=== PATIENT | female | born 1965 | race Caucasian/White ===

== ENCOUNTER 2020-02-10 07:35 | Outpatient (REF) | payer OTHER, SELFPAY ==
[2020-02-10 13:53] LABS: Hematocrit 41.1 % (37-47); Hemoglobin 13.4 g/dl (12.0-16.0); Mean Corpuscular HGB Conc 32.6 g/dl (31.0-35.0); Mean Corpuscular Hemoglobin 30.5 pg (27.0-33.0); Mean Corpuscular Volume 93.4 fL (80-98); Mean Platelet Volume 12.5 fL (9.4-12.3); Platelet Count 225 X10*3/uL (160-400); Red Cell Distribution Width 12.5 % (11.0-16.0); White Blood Count 6.9 X10*3/uL (4.8-10.8)
[2020-02-10 14:00] LABS: Glucose Urine UA NEG (NEG); Leukocyte Esterase Urine NEG (NEG); Nitrite Urine NEG (NEG); PH 6.5 (5.0-8.0); Urine Blood NEG (NEG); Urine Ketones NEG (NEG); Urine Protein NEG (NEG-TRACE)
[2020-02-10 14:02] LABS: Appearance Urine HAZY; Color Urine YELLOW
[2020-02-10 14:21] LABS: Creatinine Urine 109.51 mg/dL; Microalbum/Creatinine Ratio Ur 5.4 ug/mg cr
[2020-02-10 14:24] LABS: Estimated Average Glucose 103 mg/dL; Hemoglobin A1c % 5.2 %
[2020-02-10 14:28] LABS: Alanine Aminotransferase 22 U/L (0-31); Albumin Level 4.8 g/dL (3.5-5.0); Alkaline Phosphatase 67 U/L (39-117); Anion Gap 13 (12-20); Aspartate Amino Transferase 22 U/L (5-31); Bilirubin Total 0.6 mg/dL (0.0-1.0); Blood Urea Nitrogen 13 mg/dL (9-16); Calcium 9.4 mg/dL (8.4-10.2); Carbon Dioxide 26 mmol/L (22-29); Chloride 104 mmol/L (96-108); Cholesterol 177 mg/dL; Estimated Glomerular Filt Rate > 60; Glucose Fasting 86 mg/dL (60-99); HDL Cholesterol 62 mg/dL; LDL Cholesterol Calculated 100 mg/dl; Potassium 4.8 mmol/l (3.3-5.1); Sodium 138 mmol/L (135-145); Total Protein 7.1 g/dL (6.5-8.0); Triglycerides 79 mg/dL
[2020-02-10 14:42] LABS: Thyroid Stimulating Hormone 0.71 mIU/mL (0.32-4.0); Vitamin D 25-OH Total 21.9 ng/mL (>30)
== END 2020-02-10 07:36 | disposition home or self-care (01) ==
LOC: HO.10HDL 07:35
PROVIDERS: PCP Internal Medicine; Visit Provider Internal Medicine
DX: E03.9 Hypothyroidism, unspecified (principal); E55.9 Vitamin D deficiency, unspecified; E78.00 Pure hypercholesterolemia, unspecified
CPT/HCPCS: 36415; 80053; 80061; 81003; 82043; 82306; 83036; 84443; 85027

== ENCOUNTER 2020-02-28 16:33 | Outpatient (REF) | payer OTHER, SELFPAY | END 2020-02-28 16:34 | disposition home or self-care (01) | LOC: HO.LNP 16:33 | PROVIDERS: Visit Provider Internal Medicine | DX: R73.01 Impaired fasting glucose; E03.9 Hypothyroidism, unspecified; E78.5 Hyperlipidemia, unspecified | CPT/HCPCS: 88142 ==

== ENCOUNTER 2020-02-29 12:38 | Outpatient (REF) | payer OTHER, SELFPAY | END 2020-02-29 12:39 | disposition home or self-care (01) | LOC: HO.LAB 12:38 | PROVIDERS: Visit Provider Internal Medicine | DX: Z13.89 Encounter for screening for other disorder (principal) | CPT/HCPCS: 88142 ==

== ENCOUNTER 2020-03-19 06:58 | Outpatient (REF) | payer OTHER, SELFPAY ==
[2020-03-19 08:06] LABS: COVID-19 Test Negative (Negative)
== END 2020-03-19 06:59 | disposition home or self-care (01) ==
LOC: HO.EMPCOV 06:58
PROVIDERS: PCP Internal Medicine; Visit Provider Internal Medicine
DX: Z20.828 Contact with and (suspected) exposure to other viral communicable diseases (principal)
CPT/HCPCS: 87635; C9803

== ENCOUNTER 2020-12-18 10:19 | Outpatient (REF) | payer OTHER, SELFPAY ==
[2020-12-18 13:55] LABS: Alanine Aminotransferase 14 U/L (0-31); Albumin Level 4.5 g/dL (3.5-5.0); Alkaline Phosphatase 66 U/L (39-117); Anion Gap 11 (12-20); Aspartate Amino Transferase 18 U/L (5-31); Bilirubin Total 0.5 mg/dL (0.0-1.0); Blood Urea Nitrogen 14 mg/dL (9-16); Calcium 9.5 mg/dL (8.4-10.2); Carbon Dioxide 27 mmol/L (22-29); Chloride 107 mmol/L (96-108); Cholesterol 181 mg/dL; Estimated Glomerular Filt Rate > 60; Glucose Fasting 100 mg/dL (60-99); HDL Cholesterol 63 mg/dL; LDL Cholesterol Calculated 104 mg/dl; Sodium 140 mmol/L (135-145); Total Protein 6.8 g/dL (6.5-8.0); Triglycerides 73 mg/dL
[2020-12-18 14:01] LABS: TSH reflex Free T4 1.65 uIU/mL (0.32-4.0); Vitamin D 25-OH Total 22.6 ng/mL (>30)
== END 2020-12-18 10:20 | disposition home or self-care (01) ==
LOC: HO.10HDL 10:19
PROVIDERS: Visit Provider Internal Medicine
DX: R73.01 Impaired fasting glucose (principal); E03.9 Hypothyroidism, unspecified; E78.5 Hyperlipidemia, unspecified; E55.9 Vitamin D deficiency, unspecified
CPT/HCPCS: 36415; 80053; 80061; 82306; 84443

== ENCOUNTER 2021-06-14 12:26 | Outpatient (REF) | payer OTHER, SELFPAY ==
--- NOTE | ~2021-06-14 | XR_ITS ---
EXAMINATION: XR PELVIS XR HIP, LEFT CLINICAL INFORMATION: Pain in left hip. COMPARISON: None TECHNIQUE: AP pelvis 1 view. Left hip 2 views. FINDINGS: AP Pelvis: There is normal symmetry of both hip joints and SI joints. No visible acute fracture, dislocation or subluxation seen. The soft tissues are normal. Left Hip: 2 views of the left hip reveals no visible acute fracture or dislocation. No bony erosive changes. The soft tissues are normal. XR/XR hip LT min 2V IMPRESSION: Unremarkable left hip exam. Unremarkable AP pelvis exam.
--- NOTE | ~2021-06-14 | XR_ITS ---
EXAMINATION: XR PELVIS XR HIP, LEFT CLINICAL INFORMATION: Pain in left hip. COMPARISON: None TECHNIQUE: AP pelvis 1 view. Left hip 2 views. FINDINGS: AP Pelvis: There is normal symmetry of both hip joints and SI joints. No visible acute fracture, dislocation or subluxation seen. The soft tissues are normal. Left Hip: 2 views of the left hip reveals no visible acute fracture or dislocation. No bony erosive changes. The soft tissues are normal. XR/XR pelvis 1-2V IMPRESSION: Unremarkable left hip exam. Unremarkable AP pelvis exam.
== END 2021-06-14 12:27 | disposition home or self-care (01) ==
LOC: HO.HOSX 12:26
PROVIDERS: Visit Provider Physician Assistant
DX: M24.552 Contracture, left hip (principal)
CPT/HCPCS: 72170; 73502

== ENCOUNTER 2021-08-05 13:00 | Outpatient (RCR) | payer OTHER, SELFPAY ==
--- NOTE | 2021-07-08 14:01 | MHC.PT.EP ---
[facility] [place] Office [place] Office [place] Office [address] [phone] F: [phone] F: [phone] F: [phone] F: [phone] Physical Therapy Plan of Care Date of Evaluation: Date of Surgery: Diagnosis: L hip contracture. Assessment: Patient is a 56 year old R handed female who presents with s/s consistent with pain hip flex contracture. She works with daily job demands including standing, walking, sitting. Patient past medical history includes plantar fasciitis. Current impairments include pain, posture, ROM, strength, activity tolerance and functional mobility. Functional limitations include decreased ability to stand, getting into bath, into bed, sleep, and get into car in addition to negotiating stairs. Patient is motivated with good rehab potential. Skilled PT will address impairments and functional limitations in order to achieve goals. Frequency and Duration: The patient will be seen 2x/week for 5 weeks Short Term Goals: I with HEP -2 weeks Symmetrical innom - 3 weeks Hip abd/ext strength 4+/5 grossly Jitterbug Operator Goals: Able to walk, sleep, negotiate stairs, pain free - 5 weeks LEFS 66/80 - 5 weeks Treatment Plan: Modalities to reduce pain, spasms and effusion. Manual therapy to restore motion and function. Therapeutic exercise to improve strength and flexibility. Neuromuscular re-education for posture and balance. Therapeutic activities to return to functional activities of daily living. Electronically signed by: Tommy Jaime, PT Please sign and return to therapist. Thank you for your referral.
--- NOTE | 2021-08-09 14:37 | MHC.PT.OD ---
[facility] [place] Office [place] Office [place] Office [address] Jonh Okeefe [address] [phone] F: [phone] F: [phone] F: [phone] F: [phone] Physical Therapy Daily Note Diagnosis: L hip contracture. Date of Surgery: Date of Evaluation: 07/08/21 Date of Treatment: 08/05/21 Treatments to Date: 6 Cancellations to Date: No Shows to Date: Authorized Visits: Insurance End Date: Precautions/ Contraindications:none Subjective: It still hurts a lot Pain Score and Location: 4 Objective Flowsheet: Tests & Measures ER to 22 Exercises Stepper 12 minutes L3.5 gastroc stretching 4x30 PB HS curls 20x bridging 20x hip abd with black TB 15x10 hip add with ball 15x10 supine mod karl hip flex stretching 3x30 seconds BKFO 10x each (NV) SKTC stretching (NV) standing hip abd and ext 2 min each with RTB hep and pt edu MET for R ant innom Modalities Assessment: 08/05/21: Pt progress has been slow overall. She still has a painful arc and is still limited daily in terms of her function. She has been having a difficult time finding sustained progress with any of the interventions we have attempted with her thus far. At this time, it may be in her best interest to acquire further imaging in order to differentially diagnose and assure optimal management. 07/29/21: pt with med heel whip b/l, pigeon toed gait with L sided trendelenberg. we added gastroc stretching to HEP. 07/25/21: pt still with significant pain in L hip. admittedly has not done HEP. educated thoroughly on use of HEP and asymmetrical activity modifications. 07/15/21: pt progression seemingly limited by significant PF pain. She notes needing new orthotics and she will pursue an injection. educated her how this pain may slow progress. 07/11/21: educated thoroughly on symmetrical postures and habits. progressed with hip strength and issued updated HEP. Patient is a 56 year old R handed female who presents with s/s consistent with pain hip flex contracture. She works with daily job demands including standing, walking, sitting. Patient past medical history includes plantar fasciitis. Current impairments include pain, posture, ROM, strength, activity tolerance and functional mobility. Functional limitations include decreased ability to stand, getting into bath, into bed, sleep, and get into car in addition to negotiating stairs. Patient is motivated with good rehab potential. Skilled PT will address impairments and functional limitations in order to achieve goals. PT Plan: restore symmetry in pelvis and hips. Short Term Goals: I with HEP -2 weeks Symmetrical innom - 3 weeks Hip abd/ext strength 4+/5 grossly Long Term Care Phlebotomist Goals: Able to walk, sleep, negotiate stairs, pain free - 5 weeks LEFS 66/80 - 5 weeks Electronically signed by: Tommy Jaime PT
--- NOTE | 2022-01-16 09:26 | MHC.PT.DC ---
[facility] [place] [facility] [place] Office [place] Office [address] Jonh Okeefe [address] [phone] F: [phone] F: [phone] F: [phone] F: [phone] Physical Therapy Discharge Report Diagnosis: L hip contracture. Date of Surgery: Date of Evaluation: 07/08/21 Date of Discharge: 08/19/21 Treatments to Date: 6 Cancellations to Date: No Shows to Date: Discharge Status: Independent with HEP Recommend MD Follow-up Discharge Summary: 08/05/21: Pt progress has been slow overall. She still has a painful arc and is still limited daily in terms of her function. She has been having a difficult time finding sustained progress with any of the interventions we have attempted with her thus far. At this time, it may be in her best interest to acquire further imaging in order to differentially diagnose and assure optimal management. 07/29/21: pt with med heel whip b/l, pigeon toed gait with L sided trendelenberg. we added gastroc stretching to HEP. 07/25/21: pt still with significant pain in L hip. admittedly has not done HEP. educated thoroughly on use of HEP and asymmetrical activity modifications. 07/15/21: pt progression seemingly limited by significant PF pain. She notes needing new orthotics and she will pursue an injection. educated her how this pain may slow progress. 07/11/21: educated thoroughly on symmetrical postures and habits. progressed with hip strength and issued updated HEP. Patient is a 56 year old R handed female who presents with s/s consistent with pain hip flex contracture. She works with daily job demands including standing, walking, sitting. Patient past medical history includes plantar fasciitis. Current impairments include pain, posture, ROM, strength, activity tolerance and functional mobility. Functional limitations include decreased ability to stand, getting into bath, into bed, sleep, and get into car in addition to negotiating stairs. Patient is motivated with good rehab potential. Skilled PT will address impairments and functional limitations in order to achieve goals. Electronically signed by: Tommy Jaime, PT Please sign and return to therapist. Thank you for your referral.
== END 2022-01-16 09:27 | disposition home or self-care (01) ==
LOC: HO.PTCHIC 13:00
PROVIDERS: Visit Provider Physician Assistant
DX: M24.552 Contracture, left hip (principal)
CPT/HCPCS: 97110; 97140; 97161

== ENCOUNTER 2021-08-21 13:20 | Outpatient (REF) | payer OTHER, SELFPAY ==
--- NOTE | ~2021-08-21 | FL_ITS ---
EXAMINATION: XR ARTHROGRAM HIP, LEFT CLINICAL INFORMATION: Left hip pain and swelling. COMPARISON: None TECHNIQUE: Following explanation of fluoroscopy-guided left hip arthrogram procedure, benefits and risks, a written consent was obtained. Patient was placed supine on fluoroscopy table and a marker placed on the skin at the entry site for left hip arthrogram. The area marked was cleaned and draped in usual sterile manner. 1% lidocaine was injected at puncture site. A 22-gauge spinal needle was then advanced from the skin into the left hip joint along the lateral border of femoral neck and 1-2 mL of nonionic contrast was injected. Subsequently 0.1 mL of gadolinium diluted with 1% lidocaine and saline as a 10 mL volume was injected and needle withdrawn. Complete hemostasis achieved at puncture site. Sterile Band-Aid applied postprocedure. Patient tolerated procedure extremely well. FINDINGS: On images obtained of the left hip joint, the joint space is reduced. No bony erosive changes, fracture or dislocation. The soft tissues are normal. There is contrast opacifying the left hip joint space. FLUOROSCOPY TIME: 0.5 minutes DOSE AREA PRODUCT: 4.183 uGy-m2 (microgray-meter squared) FL/FL arthrogram hip LT IMPRESSION: Successful fluoroscopy-guided left hip arthrogram done for MRI imaging to be performed subsequently.
--- NOTE | ~2021-08-21 | MR_ITS ---
EXAMINATION: MR HIP WITH CONTRAST, LEFT CLINICAL INFORMATION: Left hip pain and swelling COMPARISON: None TECHNIQUE: MRI of the left hip was performed after the intra-articular administration of a dilute gadolinium-containing solution on a high-field scanner. FINDINGS: BONE/JOINTS: Anatomic alignment of the left hip joint. No evidence of fracture, avascular necrosis or stress reaction. No significant cartilage loss is seen. Mild osseous prominence at the anterior femoral head and neck junction of the femur. Alpha angle measures 54 degrees. Acetabular depth is normal. LABRUM: No definite labral tear is identified. MUSCLES/TENDONS: Mild to moderate distal gluteus minimus tendinosis/partial tear. Minimal distal gluteus medius tendinosis. Mild common hamstring tendinosis. Iliopsoas tendon is intact. No muscle tear or strain is seen. MISCELLANEOUS: Subcentimeter left groin lymph nodes.. MR/MR hip LT w con IMPRESSION: 1. No acute osseous abnormality. 2. Mild osseous prominence at the anterior femoral head and neck junction, may predispose to femoral acetabular impingement. 3. No definite labral tear seen. 4. Mild to moderate distal gluteus minimus tendinosis/partial tear. Minimal distal gluteus medius tendinosis. Mild left common hamstring tendinosis.
== END 2021-08-21 13:21 | disposition home or self-care (01) ==
LOC: HO.XRAY 13:20
PROVIDERS: PCP Internal Medicine; Visit Provider Physician Assistant
DX: M24.552 Contracture, left hip (principal)
CPT/HCPCS: 27093; 73525; 73722; A9585

== ENCOUNTER 2021-09-12 12:56 | Outpatient (REF) | payer OTHER, SELFPAY ==
--- NOTE | ~2021-09-12 | FL_ITS ---
EXAMINATION: XR ARTHROGRAM HIP, LEFT CLINICAL INFORMATION: Left hip pain. COMPARISON: 08/21/2021 TECHNIQUE: Fluoroscopic-guided intra-articular steroid injection of the left hip. FINDINGS: Informed consent was obtained from the patient prior to the procedure. During this process, the procedure and potential alternatives were explained, along with the intended outcome and benefits. The risks of the procedure, as well as the risk of not doing the procedure, were discussed. The patient was given the opportunity to ask questions regarding the procedure and appeared competent to make medical decisions. A signed consent form which documents this discussion was placed in the medical record. Using sterile technique and fluoroscopic guidance a 22-gauge spinal needle was directed down onto the left femoral neck. A small amount of contrast was injected demonstrating intra-articular positioning of the needle. A mixture of 4 mL of bupivacaine and 80 mg of Depo-Medrol was then instilled into the left hip joint space. Postprocedure, the patient says that her pain is improved. FLUOROSCOPY TIME: 0.7 minutes. DOSE AREA PRODUCT: 2.993 Gy-cm2 (greene-centimeter squared) FL/FL arthrogram hip LT IMPRESSION: Left hip intra-articular steroid injection as described.
== END 2021-09-12 12:57 | disposition home or self-care (01) ==
LOC: HO.XRAY 12:56
PROVIDERS: PCP Internal Medicine; Visit Provider Physician Assistant
DX: M25.852 Other specified joint disorders, left hip (principal)
CPT/HCPCS: 27093; 73525

== ENCOUNTER 2021-11-20 08:16 | Outpatient (REF) | payer OTHER, SELFPAY ==
[2021-11-20 10:22] LABS: MANUAL DIFF FLAG NO
[2021-11-20 10:25] LABS: Appearance Urine HAZY; Color Urine YELLOW; Glucose Urine UA NEG (NEG); Leukocyte Esterase Urine NEG (NEG); Nitrite Urine NEG (NEG); Urine Blood NEG (NEG); Urine Ketones NEG (NEG); Urine Protein NEG (NEG-TRACE)
[2021-11-20 10:31] LABS: Basophils Percent Auto 0.6 % (0-2); Eosinophils Absolute Auto 0.2 X10*3/uL (0.0-0.4); Eosinophils Percent Auto 3.6 % (0-4); Hematocrit 39.7 % (37.0-47.0); Hemoglobin 12.8 g/dl (12.0-16.0); Imm Gran Abs Auto 0.01 X10*3/uL (0.00-0.03); Imm Gran Pct Auto 0.2 % (0.0-0.4); Lymphocytes Absolute Auto 1.4 X10*3/uL (1.2-4.9); Lymphocytes Percent Auto 22.6 % (20-40); Mean Corpuscular HGB Conc 32.2 g/dl (31.0-35.0); Mean Corpuscular Hemoglobin 29.8 pg (27.0-33.0); Mean Corpuscular Volume 92.3 fL (80.0-98.0); Monocytes Absolute Auto 0.5 X10*3/uL (0.1-1.2); Monocytes Percent Auto 8.2 % (2-11); Neutrophils Absolute Auto 4.1 x10*3/uL (2.0-8.3); Neutrophils Percent Auto 64.8 % (45-73); Platelet Count 196 X10*3/uL (160-400); Red Cell Distribution Width 13.2 % (11.0-16.0); White Blood Count 6.4 X10*3/uL (4.8-10.8)
[2021-11-20 10:51] LABS: RBC Urine 0 /HPF (0); WBC Urine 0 /HPF (0-4)
[2021-11-20 10:52] LABS: Bacteria Urine 2+ /LPF; Mucus Urine 2+ /LPF; Squamous Epithelial Cell Urine 2+ /LPF
[2021-11-20 10:59] LABS: Alanine Aminotransferase 17 U/L (0-31); Albumin Level 4.4 g/dL (3.5-5.0); Alkaline Phosphatase 65 U/L (39-117); Anion Gap 12 (12-20); Aspartate Amino Transferase 19 U/L (5-31); Bilirubin Total 0.5 mg/dL (0.0-1.0); Blood Urea Nitrogen 13 mg/dL (9-16); Calcium 8.9 mg/dL (8.4-10.2); Carbon Dioxide 25 mmol/L (22-29); Chloride 107 mmol/L (96-108); Cholesterol 181 mg/dL; Estimated Glomerular Filt Rate > 60; Glucose Fasting 100 mg/dL (60-99); HDL Cholesterol 64 mg/dL; LDL Cholesterol Calculated 106 mg/dl; Potassium 4.4 mmol/L (3.3-5.1); Sodium 140 mmol/L (135-145); Total Protein 6.6 g/dL (6.5-8.0); Triglycerides 57 mg/dL
[2021-11-20 11:11] LABS: TSH reflex Free T4 1.39 uIU/mL (0.32-4.0)
== END 2021-11-20 08:17 | disposition home or self-care (01) ==
LOC: HO.10HDL 08:16
PROVIDERS: Visit Provider Internal Medicine
DX: E55.9 Vitamin D deficiency, unspecified (principal); E78.5 Hyperlipidemia, unspecified; M24.552 Contracture, left hip; M25.852 Other specified joint disorders, left hip; E03.9 Hypothyroidism, unspecified
CPT/HCPCS: 36415; 80053; 80061; 81001; 84443; 85025

== ENCOUNTER 2021-12-20 08:19 | Outpatient (REF) | payer OTHER, SELFPAY ==
--- NOTE | ~2021-12-20 | MM_ITS ---
EXAMINATION: MM SCREENING DIGITAL BREAST TOMOSYNTHESIS, BILATERAL CLINICAL INFORMATION: Screening. Asymptomatic. The lifetime risk of breast cancer based on the Tyrer-Cuzick Model is 7%. COMPARISON: Mammography: 07/06/2019, 03/11/2017, 10/25/2015 TECHNIQUE: Digital breast tomosynthesis is performed in both the craniocaudal and mediolateral oblique views along with computer-aided detection (CAD). Synthesized 2D images are generated from the tomosynthesis. FINDINGS: The breasts are almost entirely fatty (ACR BI-RADS breast composition Category a). There are no significant masses, abnormal calcifications, or other abnormalities. Parenchymal pattern is similar to prior studies. No developing density. No significant changes. MM/MM tomosynthesis screening BI IMPRESSION: No mammographic evidence of malignancy. ASSESSMENT: BI-RADS 1: Negative RECOMMENDATION: Routine annual mammography screening. This patient's information was entered into a reminder system with a target due date for their next mammogram.
--- NOTE | ~2021-12-20 | MM_ITS ---
EXAMINATION: BONE DENSITOMETRY CLINICAL INDICATION: Asymptomatic menopausal state. COMPARISON: None (current study represents initial baseline exam). TECHNIQUE: Using a Chart[employer]right DXA System (software version: 13.1) manufactured by [employer], dual-energy x-ray absorptiometry was performed of the lumbar spine and left hip. The images are of good technical quality. Summary results are attached. FINDINGS: AP SPINE L1-L4: BMD 1.238 g/cm2, Z-score 0.3, T-score 0.5, normal. LEFT FEMUR, NECK: BMD 0.914 g/cm2, Z-score -0.5, T-score -0.9, normal. LEFT FEMUR, TOTAL: BMD 1.059 g/cm2, Z-score 0.4, T-score 0.4, normal. IDENTIFIED RISK FACTORS: Menopause. HISTORY OF FRACTURE: None listed. MEDICATIONS: Vitamin D. MM/XR DEXA axial skeleton IMPRESSION: 1. DIAGNOSIS: Normal bone density based on the lowest T-score value of -0.9 in the femoral neck applying World Health Organization criteria. 2. 10-YEAR FRACTURE RISK PREDICTION, FRAX: According to the guidelines, FRAX calculation should only be performed on patients in the osteopenia bone density category. Therefore, FRAX was not performed on this patient. 3. Treatment Recommendations: NOF guidelines recommend consideration for treatment in postmenopausal women and men age 50 and older presenting with the following: -A hip or vertebral (clinical or morphometric) fracture. -T-score less than or equal to -2.5 at the femoral neck or spine after appropriate evaluation to exclude secondary causes. -Low bone mass at the hip or spine and a 10-year fracture probability by FRAX of greater than or equal to 3% for hip fracture or greater than or equal to 20% for major osteoporotic fracture based on the [place] adapted WHO algorithm. 4. Other Recommendations: All treatment decisions require clinical judgment and consideration of individual patient factors, including patient preferences, comorbidities, previous drug use, risk factors not captured in the FRAX model (e.g. frailty, falls, vitamin D deficiency, increased bone turnover, interval significant decline in bone density) and possible under or overestimation of fracture risk by FRAX. FUTURE SCAN RECOMMENDATION: People with diagnosed cases of osteoporosis or at high risk for fracture should have regular bone mineral density tests. For patients eligible for Medicare, routine testing is allowed once every 2 years. The testing frequency can be increased to one year for patients who have rapidly progressing disease, those who are receiving or discontinuing medical therapy to restore bone mass, or have additional risk factors.
== END 2021-12-20 08:20 | disposition home or self-care (01) ==
LOC: HO.MAMMO 08:19
PROVIDERS: PCP Internal Medicine; Visit Provider Internal Medicine
DX: Z12.31 Encounter for screening mammogram for malignant neoplasm of breast (principal); Z13.820 Encounter for screening for osteoporosis; Z78.0 Asymptomatic menopausal state; E55.9 Vitamin D deficiency, unspecified
CPT/HCPCS: 77063; 77067; 77080

== ENCOUNTER 2022-02-20 11:58 | Outpatient (REF) | payer OTHER, SELFPAY ==
--- NOTE | ~2022-02-20 | XR_ITS ---
EXAMINATION: XR CHEST CLINICAL INFORMATION: Nasal congestion COMPARISON: Previous chest x-ray August 2016 TECHNIQUE: Frontal view of the chest was obtained. FINDINGS: No significant abnormality is noted involving the heart, lungs, mediastinum, bony thorax or soft tissues. XR/XR chest 1V IMPRESSION: Unremarkable examination.
--- NOTE | ~2022-02-20 | XR_ITS ---
EXAMINATION: XR SINUSES CLINICAL INFORMATION: Nasal congestion. COMPARISON: None TECHNIQUE: Tillman, Arenas, lateral, and SMV views of the paranasal sinuses are submitted. FINDINGS: Paranasal sinuses appear clear without air-fluid levels. There is a hypoplastic right frontal sinus. No fractures are identified. The nasal septum appears midline. No radiodense foreign bodies. XR/XR sinus min 3V IMPRESSION: Unremarkable examination.
[2022-02-20 13:50] LABS: MANUAL DIFF FLAG NO
[2022-02-20 14:03] LABS: Basophils Percent Auto 0.3 % (0-2); Eosinophils Absolute Auto 0.2 X10*3/uL (0.0-0.4); Eosinophils Percent Auto 3.8 % (0-4); Hematocrit 41.4 % (37.0-47.0); Hemoglobin 13.8 g/dl (12.0-16.0); Imm Gran Abs Auto 0.02 X10*3/uL (0.00-0.03); Imm Gran Pct Auto 0.3 % (0.0-0.4); Lymphocytes Absolute Auto 1.6 X10*3/uL (1.2-4.9); Lymphocytes Percent Auto 25.4 % (20-40); Mean Corpuscular HGB Conc 33.3 g/dl (31.0-35.0); Mean Corpuscular Hemoglobin 30.2 pg (27.0-33.0); Mean Corpuscular Volume 90.6 fL (80.0-98.0); Mean Platelet Volume 12.3 fL (9.4-12.3); Monocytes Absolute Auto 0.4 X10*3/uL (0.1-1.2); Monocytes Percent Auto 6.1 % (2-11); Neutrophils Percent Auto 64.1 % (45-73); Platelet Count 244 X10*3/uL (160-400); Red Blood Count 4.57 X10*6/uL (4.20-5.50); Red Cell Distribution Width 12.8 % (11.0-16.0); White Blood Count 6.3 X10*3/uL (4.8-10.8)
[2022-02-20 14:14] LABS: C Reactive Protein 0.12 mg/dL (< or = 0.50)
[2022-02-22 14:33] LABS: IgA 86 mg/dL (47-310); IgG 718 mg/dL (600-1640); IgM 36 mg/dL (50-300)
== END 2022-02-20 11:59 | disposition home or self-care (01) ==
LOC: HO.HMGCX 11:58
PROVIDERS: PCP Internal Medicine; Visit Provider Internal Medicine
DX: R09.81 Nasal congestion (principal); R09.82 Postnasal drip
CPT/HCPCS: 36415; 70220; 71045; 82784; 85025; 86140

== ENCOUNTER 2022-04-08 09:26 | Outpatient (REF) | payer OTHER, SELFPAY ==
--- NOTE | ~2022-04-08 | XR_ITS ---
EXAMINATION: XR SHOULDER, LEFT CLINICAL INFORMATION: Left shoulder pain. COMPARISON: None TECHNIQUE: Three views of the left shoulder. FINDINGS: A curvilinear lucency is seen laterally in the humeral head/greater tuberosity. Minimal left glenohumeral and acromioclavicular degenerative joint changes are seen. The visualized left ribs are intact with the soft tissues are unremarkable. XR/XR shoulder LT min 2V IMPRESSION: 1. Possible acute, nondisplaced lateral femoral head/greater tuberosity fracture. Correlate with physical exam and trauma history. 2. Minimal degenerative changes.
== END 2022-04-08 09:27 | disposition home or self-care (01) ==
LOC: HO.HMGCX 09:26
PROVIDERS: PCP Internal Medicine; Visit Provider Physician Assistant
DX: M25.512 Pain in left shoulder (principal); W00.9XXD Unspecified fall due to ice and snow, subsequent encounter
CPT/HCPCS: 73030

== ENCOUNTER 2022-05-09 09:19 | Outpatient (REF) | payer OTHER, SELFPAY ==
--- NOTE | ~2022-05-09 | XR_ITS ---
EXAMINATION: XR SHOULDER, LEFT CLINICAL INFORMATION: Pain in the left shoulder. COMPARISON: 04/08/2022. TECHNIQUE: Two views of the left shoulder. FINDINGS: Comminuted greater tuberosity fracture with increased depression and displacement compared to 04/08/2022. AC joint is maintained. The humeral head remains well-seated in the glenoid. No left-sided clavicular fracture. The visualized left-sided ribs and left lung are within normal limits. No abnormal soft tissue calcifications. XR/XR shoulder LT min 2V IMPRESSION: Comminuted greater tuberosity fracture with increased depression and displacement compared to 04/08/2022.
== END 2022-05-09 09:20 | disposition home or self-care (01) ==
LOC: HO.HOSX 09:19
PROVIDERS: Visit Provider Physician Assistant
DX: S42.252D Displaced fracture of greater tuberosity of left humerus, subsequent encounter for fracture with routine healing (principal); W19.XXXD Unspecified fall, subsequent encounter
CPT/HCPCS: 73030

== ENCOUNTER 2022-06-12 15:08 | Outpatient (REF) | payer OTHER, SELFPAY ==
--- NOTE | ~2022-06-12 | XR_ITS ---
EXAMINATION: XR SHOULDER, LEFT CLINICAL INFORMATION: Pain. COMPARISON: Radiographs dated 05/09/2022. TECHNIQUE: AP external rotation, Grashey, scapular Y, and axillary views of the left shoulder. FINDINGS: Bony alignment and mineralization are normal. A healing, comminuted, mildly displaced fracture is redemonstrated of the greater tuberosity of the proximal left humerus. Alignment is relatively stable from 05/09/2022. A faint fracture line is redemonstrated, with some osseous bridging. The glenohumeral joint is intact. The acromioclavicular and coracoclavicular intervals are normal. No soft tissue swelling, calcification or foreign body is seen. There is no left pneumothorax. XR/XR shoulder LT min 2V IMPRESSION: A healing, comminuted fracture is seen of the greater tuberosity of the proximal left humerus, in stable alignment.
== END 2022-06-12 15:09 | disposition home or self-care (01) ==
LOC: HO.HOSX 15:08
PROVIDERS: Visit Provider Physician Assistant
DX: S42.252D Displaced fracture of greater tuberosity of left humerus, subsequent encounter for fracture with routine healing (principal); W19.XXXD Unspecified fall, subsequent encounter
CPT/HCPCS: 73030

== ENCOUNTER 2022-06-26 09:31 | Outpatient (REF) | payer OTHER, SELFPAY ==
--- NOTE | ~2022-06-26 | MR_ITS ---
EXAMINATION: MR SHOULDER WITHOUT CONTRAST, LEFT CLINICAL INFORMATION: Severe left shoulder pain. Decreased range of motion. Fall 04/07/2023. COMPARISON: Radiographs dated 06/12/2022. TECHNIQUE: MR images of the shoulder were obtained on a 1.5 Porsha high-field strength scanner without intravenous contrast material. FINDINGS: ROTATOR CUFF: Again seen is a mildly comminuted greater tuberosity fracture at the insertions of the supraspinatus and infraspinatus tendons, measuring approximately 3 x 2 cm in area. The overlying supraspinatus and infraspinatus tendon are edematous, likely due to tendinosis. There is a small focus of interstitial delamination of the supraspinatus tendon measuring 1 x 1 cm in area near the level of the critical zone. No discrete superimposed tears are identified, however. Subscapularis and teres minor are intact. Mild grade 1 fatty replacement is evident at the infraspinatus and teres minor muscles. No additional findings of muscle atrophy. BICEPS: Normal CORACOACROMIAL ARCH: The undersurface of the acromion is curved with no subacromial spur. Moderate acromioclavicular osteoarthritis. Trace fluid in the subacromial subdeltoid bursa. LABRUM/CAPSULE: The posterosuperior glenoid labrum is blunted and irregular, most consistent with fraying. No discrete labral tears are identified. Sensitivity is somewhat limited by motion artifact. GLENOHUMERAL JOINT/MARROW: As noted above, there is a comminuted fracture at the greater tuberosity involving the majority of the supraspinatus and infraspinatus tendon insertions. The fragments are mildly impacted with underlying marrow edema signal. Small marginal osteophytes are present at the glenoid. There is mild nonuniform chondral thinning at the glenoid with subchondral edema signal near the posterior glenoid rim. Humeral articular cartilage is unremarkable. Small joint effusion. No loose bodies. MR/MR shoulder LT wo con IMPRESSION: 1. Comminuted greater tuberosity fracture involving the majority of the supraspinatus and infraspinatus tendon insertions. 2. Small 1 x 1 cm focus of interstitial delamination of the supraspinatus tendon without a discrete surfacing rotator cuff tear. Moderate supraspinatus and infraspinatus tendinosis. 3. Moderate acromioclavicular and mild glenohumeral osteoarthritis. 4. Fraying of the posterosuperior glenoid labrum.
== END 2022-06-26 09:32 | disposition home or self-care (01) ==
LOC: HO.MRI 09:31
PROVIDERS: PCP Internal Medicine; Visit Provider Physician Assistant
DX: S42.252A Displaced fracture of greater tuberosity of left humerus, initial encounter for closed fracture (principal); S46.002A Unspecified injury of muscle(s) and tendon(s) of the rotator cuff of left shoulder, initial encounter; W18.30XA Fall on same level, unspecified, initial encounter; Y93.9 Activity, unspecified; Y92.9 Unspecified place or not applicable; Y99.9 Unspecified external cause status
CPT/HCPCS: 73221

== ENCOUNTER → 2022-07-07 09:28 | Outpatient (BNVA) | payer OTHER, SELFPAY | PROVIDERS: PCP Internal Medicine; Visit Provider Physician Assistant | DX: S42.256 Nondisplaced fracture of greater tuberosity of unspecified humerus (principal) | CPT/HCPCS: 20610; J1040 ==

== ENCOUNTER 2022-09-01 10:47 | Outpatient (REF) | payer OTHER, SELFPAY ==
--- NOTE | ~2022-09-01 | XR_ITS ---
EXAMINATION: XR SHOULDER, LEFT CLINICAL INFORMATION: Pain. COMPARISON: Radiographs dated 06/12/2022. TECHNIQUE: AP neutral, scapular Y, and axillary views of the left shoulder. FINDINGS: Bony alignment and mineralization are normal. The glenohumeral joint is intact. The acromioclavicular and coracoclavicular levels are normal. There is mild osteoarthritic change of the left acromioclavicular joint. There is cortical irregularity of the greater tuberosity of the proximal left humerus. There is calcific tendinitis of the left rotator cuff insertion. No fracture or dislocation is seen. There is no foreign body. No left pneumothorax is seen. XR/XR shoulder LT min 2V IMPRESSION: 1. No fracture or dislocation is seen. 2. There is mild osteoarthritic change of the left acromioclavicular joint. 3. There is left rotator cuff calcific tendinitis.
== END 2022-09-01 10:48 | disposition home or self-care (01) ==
LOC: HO.HOSX 10:47
PROVIDERS: Visit Provider Physician Assistant
DX: Z13.89 Encounter for screening for other disorder (principal)

== ENCOUNTER → 2022-09-04 15:14 | Outpatient (BNVA) | payer OTHER, SELFPAY | PROVIDERS: PCP Internal Medicine; Visit Provider Physician Assistant | DX: M25.512 Pain in left shoulder (principal); S42.255A Nondisplaced fracture of greater tuberosity of left humerus, initial encounter for closed fracture; X58.XXXA Exposure to other specified factors, initial encounter; Y93.9 Activity, unspecified; Y92.9 Unspecified place or not applicable; Y99.8 Other external cause status | CPT/HCPCS: 73030 ==

== ENCOUNTER 2022-10-07 14:00 | Outpatient (RCR) | payer OTHER, SELFPAY ==
--- NOTE | 2022-05-23 14:50 | MHC.PT.EP ---
[facility] [place] Office [place] Office [place] Office [address] Jonh Okeefe [address] [phone] F: [phone] F: [phone] F: [phone] F: [phone] Physical Therapy Plan of Care Date of Evaluation: Date of Surgery: n/a Diagnosis: nondisplaced fx tuberosity humerus Assessment: Patient is a 57 year old female presenting to PT with nondisplaced L tuberosity of humerus fx. Pt reports onset of pain began 04/08/2022 due to slipping and falling on ice causing her to land on her shoulder. She presents today with impairments in pain, shoulder ROM, shoulder strength, posture. 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 Pt expresses prison goal of returning to [employer], and is motivated to work towards this in PT. Clinical presentation today is most consistent with signs and sx associated with L nondisplaced fx of tuberosity of humerus and pt will benefit from skilled PT to address the following problems and impairments noted upon evaluation: pain, shoulder ROM, shoulder strength, posture. These problems limit the patient with the following functional activities: work, sleep, driving, reaching, lifting, ADLs . The prescribed treatment plan of care is medically necessary. Co-morbidities of factor V leiden were identified and taken into considerations of plan of care. Pt was educated on HEP, role of PT, prognosis, POC. Frequency and Duration: The patient will be seen 2 x week x 8 weeks Short Term Goals: Pt will demonstrate improved L shoulder PROM to 90 in 3 weeks. Pt will demonstrate improved postural awareness by sitting with biomechanically correct posture without cues throughout session to improve overall postural function in 3 weeks. Pt will demonstrate full shoulder ROM in 6 weeks. Pt will demonstrate L shoulder strength at least 4/5 in 6 weeks pending MD clearance for strengthening. Halfway Goals: Pt will demonstrate improved SPADI score by 13 points in 8 weeks for improved functional mobility. Pt will demonstrate L shoulder MMT strength of 5/5 in 8 weeks for improved ability to complete ADLs. Pt will demonstrate full shoulder AROM in 8 weeks for improved ability to reach OH and tolerate activities at her PLOF. Pt will demonstrate ability to drive with min to no pain in 8 weeks for improved return to PLOF. Treatment Plan: Modalities to reduce pain, spasms and effusion. Manual therapy to restore motion and function. Therapeutic exercise to improve strength and flexibility. Neuromuscular re-education for posture and balance. Therapeutic activities to return to functional activities of daily living. Electronically signed by: Please sign and return to therapist. Thank you for your referral.
--- NOTE | 2022-10-24 08:44 | MHC.PT.DC ---
[facility] [place] Office [place] Office [place] Office [address] Jonh Okeefe [address] [phone] F: [phone] F: [phone] F: [phone] F: [phone] Physical Therapy Discharge Report Diagnosis: nondisplaced fx tuberosity humerus Date of Surgery: n/a Date of Evaluation: 05/23/22 Date of Discharge: 10/24/22 Treatments to Date: 24 Cancellations to Date: 6 No Shows to Date: 0 Discharge Status: Improved Function Independent with HEP Discharge Summary: Pt saw [facility] for final appointment at which point she was demonstrating improvements and plan was to d/c. Pt should follow up with MD if limitations continue. Electronically signed by: Leanne Gonzalez, PT, DPT, ATC Please sign and return to therapist. Thank you for your referral.
== END 2022-10-24 08:44 | disposition home or self-care (01) ==
LOC: HO.PTCHIC 14:00
PROVIDERS: PCP Internal Medicine; Visit Provider Physician Assistant
DX: S42.256 Nondisplaced fracture of greater tuberosity of unspecified humerus (principal)
CPT/HCPCS: 97110; 97140; 97161

== ENCOUNTER 2022-12-26 08:29 | Outpatient (REF) | payer OTHER, SELFPAY ==
--- NOTE | ~2022-12-26 | MM_ITS ---
EXAMINATION: MM SCREENING DIGITAL BREAST TOMOSYNTHESIS, BILATERAL CLINICAL INFORMATION: Screening. Asymptomatic. COMPARISON: Mammography: This study is compared with prior exams dating back to 2017. TECHNIQUE: Digital breast tomosynthesis is performed in both the craniocaudal and mediolateral oblique views along with computer-aided detection (CAD). Synthesized 2D images are generated from the tomosynthesis. FINDINGS: The breasts are almost entirely fatty (ACR BI-RADS breast composition Category a). There are no significant masses, abnormal calcifications, or other abnormalities. MM/MM tomosynthesis screening BI IMPRESSION: No mammographic evidence of malignancy. ASSESSMENT: BI-RADS BI-RADS 1 - Negative RECOMMENDATION: Routine annual mammography screening. 1 year F/U This examination should not preclude the clinical evaluation of a suspicious palpable abnormality. This patient's information was entered into a reminder system with a target due date for their next mammogram.
== END 2022-12-26 08:30 | disposition home or self-care (01) ==
LOC: HO.MAMMO 08:29
PROVIDERS: Visit Provider Internal Medicine
DX: Z12.31 Encounter for screening mammogram for malignant neoplasm of breast (principal)
CPT/HCPCS: 77063; 77067

== ENCOUNTER → 2022-12-26 08:30 | Outpatient (BNV) | payer OTHER, SELFPAY | PROVIDERS: Visit Provider Radiology Diagnostic Radiology | DX: Z12.31 Encounter for screening mammogram for malignant neoplasm of breast (principal) | CPT/HCPCS: 77063; 77067; 77080 ==

== ENCOUNTER 2023-01-09 11:54 | Outpatient (AMB) | payer OTHER, SELFPAY ==
[2023-01-09 11:57] VITALS: BP 128/76; PULSE 65; O2SAT 98; BMI 39.4
--- NOTE | 2023-01-09 11:57 | MHC.PC.OV ---
Vital Signs 01/09/23 11:57 Height 5 ft 4 in Weight 229 lb 6 oz BMI 39.4 BP 128/76 Blood Pressure Location Lt brachial Position Sitting Pulse 65 Pulse Source Pulse Oximeter Pulse Oximetry (%) 98 Oxygen Delivery Method Room Air Intake Visit Reasons: Annual PE Allergies acetaminophen [Vicodin] Allergy (Unknown, Verified 01/09/23 11:58) rash hydrocodone [Vicodin] Allergy (Unknown, Verified 01/09/23 11:58) rash pravastatin Allergy (Unknown, Verified 01/09/23 11:58) muscle aches sulfamethoxazole [From BACTRIM] Allergy (Unknown, Verified 01/09/23 11:58) UNKNONW trimethoprim [From BACTRIM] Allergy (Unknown, Verified 01/09/23 11:58) UNKNONW oxycodone [OXYCODONE] Adverse Reaction (Unknown, Verified 01/09/23 11:58) NAUSEA Hydrocodone Bitartrate Allergy (Unknown, Uncoded 09/04/22 15:32) rash Pt states no food allergies Allergy (Unknown, Uncoded 09/04/22 15:32) Unknown Medication List - Last Reconciled 01/09/23 by Bonnie Stewart MD atorvastatin 20 mg PO DAILY bupropion HCl 200 mg PO BID clotrimazole-betamethasone 1-0.05 % 1 appl topical BID 30 days fluticasone propionate 50 mcg/actuation (Flonase Allergy Relief) 2 sprays intranasal DAILY levothyroxine 75 mcg PO DAILY lorazepam 0.5 mg PO DAILY PRN mometasone-formoterol 100-5 mcg/actuation (Dulera) 2 puffs inhalation BID sertraline 200 mg (2 x 100 mg) PO DAILY Tobacco use date assessed: 01/09/23 Dental Screening Dental Screen Date: 01/09/23 Did you have a dental visit in the last 12 months?: Yes Did you have a dental problem in the last 6 months where you did not have access to dental care?: No Was dental information given to patient?: Patient has dentist HPI Annual PE HPI Details Pt presents for PE. PFSH Medical History Left hip impingement syndrome Hip pain Vitamin D deficiency Factor V Leiden Impaired fasting blood sugar Hyperlipidemia GERD (gastroesophageal reflux disease) Depression Hypothyroidism Surgical History History of removal of cyst History of section History of appendectomy History of colonoscopy Family History Father Cancer of prostate Cardiomyopathy HTN (hypertension) CVD (cardiovascular disease) Myocardial infarction Mother GI obstruction HTN (hypertension) Diabetes mellitus Maternal Grandmother No problems noted. Maternal Grandfather Cancer of prostate Stomach cancer Paternal Grandfather No problems noted. Paternal Grandmother No problems noted. Brother No problems noted. Brother No problems noted. Sister No problems noted. Daughter No problems noted. 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 How often do you have a drink containing alcohol?: 2-4 times a month 2. How many drinks containing alcohol do you have on a typical day when you are drinking?: 3 or 4 3. How often do you have six or more drinks on one occasion?: Less than monthly Total Score: 4 ELVIS-7 AMB Questionnaire ELVIS-7 Feeling nervous, anxious, or on edge: 1 = Several days Not being able to stop or control worryin = Not at all Worrying too much about different things: 0 = Not at all Trouble relaxin = Not at all Being so restless that it is hard to sit still: 0 = Not at all Becoming easily annoyed or irritable: 1 = Several days Feeling afraid as if something awful might happen: 1 = Several days Total ELVIS-7 score (0-4 normal; 5-9 mild; 10-14 moderate; 15-21 severe): 3 Source: Developed by Drs. Alo Degroot, Noris Robert, Christiano Livingston and colleagues, with an educational pmaella from [employer]. Review of Systems Const All systems reviewed & are unremarkable except as noted in HPI and below Reports no additional complaints Eyes Reports no additional complaints ENT Reports no additional complaints Card Reports no additional complaints Resp Reports no additional complaints GI Reports no additional complaints Reports no additional complaints Physical exam (Primary Care) Vital Signs: Last Vital Signs Pulse 65 01/09/23 11:57 BP 128/76 01/09/23 11:57 Pulse Ox 98 01/09/23 11:57 Oxygen Delivery Method Room Air 01/09/23 11:57 BMI result Body Mass Index 39.4 Tobacco/Smoking Status: Tobacco use Status Tobacco use date assessed 01/09/23 01/09/23 11:58 Patient Tobacco Use Status Former Tobacco user 01/09/23 11:58 e-Cigarette/Vaping Use Never Used 01/09/23 11:58 Thrive Assessment: Date of Thrive Assessment Date Thrive assessed 11/29/21 01/09/23 11:58 Const General: no acute distress HENMT Head: Yes normal to inspection Ears: hearing grossly normal bilaterally General nose exam: Normal external nose present Face and sinus: Yes normal facial exam Mouth: Normal oral and palatal mucosa present Eyes General: appearance normal, both eyes and all related structures Neck Neck: Yes no lymphadenopathy and Yes supple Resp Effort & Inspection: normal respiratory effort Auscultation: clear to auscultation bilaterally Cardio Rhythm: regular rhythm Heart sounds: S1 normal heart sound present and S2 normal heart sound present GI Inspection: Yes normal to inspection Palpation (GI): Soft to palpation Percussion: Yes normal to percussion Auscultation: normal bowel sounds Assessment and Plan Assessment & Plan (1) Ankle pain, right: Code(s): M25.571 - Pain in right ankle and joints of right foot Plan: check XR, PT recommended (2) Annual physical exam: Code(s): Z00.00 - Encounter for general adult medical examination without abnormal findings Plan: well balanced diet, regular exercise, up to date with mammogram, check Cologuard (3) Vitamin D deficiency: Code(s): E55.9 - Vitamin D deficiency, unspecified (4) Hypothyroidism: Code(s): E03.9 - Hypothyroidism, unspecified Plan: check TSH (5) Hyperlipidemia: Code(s): E78.5 - Hyperlipidemia, unspecified Plan: check lipids Orders: Orders Comprehensive [place]. Panel Fast Today E03.9 - Hypothyroidism, unspecified, E55.9 - Vitamin D deficiency, unspecified, E78.5 - Hyperlipidemia, unspecified, Z00.00 - Encounter for general adult medical examination without abnormal findings Lipid Panel Today E03.9 - Hypothyroidism, unspecified, E55.9 - Vitamin D deficiency, unspecified, E78.5 - Hyperlipidemia, unspecified, Z00.00 - Encounter for general adult medical examination without abnormal findings Vitamin D 25-OH Total Today E03.9 - Hypothyroidism, unspecified, E55.9 - Vitamin D deficiency, unspecified, E78.5 - Hyperlipidemia, unspecified, Z00.00 - Encounter for general adult medical examination without abnormal findings XR ankle RT 2V Today E03.9 - Hypothyroidism, unspecified, E55.9 - Vitamin D deficiency, unspecified, E78.5 - Hyperlipidemia, unspecified, M25.571 - Pain in right ankle and joints of right foot, Z00.00 - Encounter for general adult medical examination without abnormal findings Complete Blood Count Auto Diff Today E03.9 - Hypothyroidism, unspecified, E55.9 - Vitamin D deficiency, unspecified, E78.5 - Hyperlipidemia, unspecified, Z00.00 - Encounter for general adult medical examination without abnormal findings TSH reflex Free T4 Today E03.9 - Hypothyroidism, unspecified, E55.9 - Vitamin D deficiency, unspecified, E78.5 - Hyperlipidemia, unspecified, Z00.00 - Encounter for general adult medical examination without abnormal findings Referrals Cologuard Test E03.9 - Hypothyroidism, unspecified, E55.9 - Vitamin D deficiency, unspecified, E78.5 - Hyperlipidemia, unspecified, Z00.00 - Encounter for general adult medical examination without abnormal findings, Z12.11 - Encounter for screening for malignant neoplasm of colon, Z12.12 - Encounter for screening for malignant neoplasm of rectum Medications: Discontinued mometasone-formoterol 100-5 mcg/actuation (Dulera) Discontinued Reason: Doctor's Order 2 puffs inhalation BID 8.8 grams 0RF Coding Level of Care Code Est Pt Prev Care 40-64y(92984) Diagnoses Ankle pain, right M25.571 Annual physical exam Z00.00 Vitamin D deficiency E55.9 Hypothyroidism E03.9 Hyperlipidemia E78.5
== END 2023-01-09 12:57 | disposition home or self-care (01) ==
PROVIDERS: PCP Internal Medicine; Visit Provider Internal Medicine
DX: M25.571 Pain in right ankle and joints of right foot (principal); Z00.00 Encounter for general adult medical examination without abnormal findings; E55.9 Vitamin D deficiency, unspecified; E03.9 Hypothyroidism, unspecified; E78.5 Hyperlipidemia, unspecified
CPT/HCPCS: 99396

== ENCOUNTER 2023-01-09 12:40 | Outpatient (REF) | payer OTHER, SELFPAY ==
--- NOTE | ~2023-01-09 | XR_ITS ---
EXAMINATION: XR ANKLE, RIGHT CLINICAL INFORMATION: Pain COMPARISON: None available. TECHNIQUE: AP, lateral, and mortise views of the right ankle. FINDINGS: Bony density extending off the medial malleolus. This could be dystrophic calcification associated with previous injury. It would be difficult to exclude an acute avulsion. Otherwise some degeneration is seen laterally. The mortise is grossly intact. Moderate spurring at the insertion of the plantar aponeuroses on the calcaneus. XR/XR ankle RT 2V IMPRESSION: Bony density off the medial malleolus may be associated with previous injury/dystrophic calcification. Acute avulsion cannot be excluded. Correlation recommended clinically. Otherwise degenerative changes are noted.
[2023-01-09 15:56] LABS: MANUAL DIFF FLAG NO
[2023-01-09 16:12] LABS: Basophils Percent Auto 0.4 % (0-2); Eosinophils Absolute Auto 0.2 X10*3/uL (0.0-0.4); Eosinophils Percent Auto 2.8 % (0-4); Hematocrit 41.8 % (37.0-47.0); Hemoglobin 13.7 g/dl (12.0-16.0); Imm Gran Abs Auto 0.02 X10*3/uL (0.00-0.03); Imm Gran Pct Auto 0.3 % (0.0-0.4); Lymphocytes Absolute Auto 2.2 X10*3/uL (1.2-4.9); Lymphocytes Percent Auto 31.4 % (20-40); Mean Corpuscular HGB Conc 32.8 g/dl (31.0-35.0); Mean Corpuscular Hemoglobin 29.6 pg (27.0-33.0); Mean Corpuscular Volume 90.3 fL (80.0-98.0); Mean Platelet Volume 12.2 fL (9.4-12.3); Monocytes Absolute Auto 0.6 X10*3/uL (0.1-1.2); Monocytes Percent Auto 8.2 % (2-11); Neutrophils Absolute Auto 4.1 x10*3/uL (2.0-8.3); Neutrophils Percent Auto 56.9 % (45-73); Platelet Count 225 X10*3/uL (160-400); Red Blood Count 4.63 X10*6/uL (4.20-5.50); White Blood Count 7.1 X10*3/uL (4.8-10.8)
[2023-01-09 16:37] LABS: Alanine Aminotransferase 17 U/L (0-31); Albumin Level 4.7 g/dL (3.5-5.0); Alkaline Phosphatase 76 U/L (39-117); Anion Gap 14 (12-20); Aspartate Amino Transferase 22 U/L (5-31); Bilirubin Total 0.5 mg/dL (0.0-1.0); Blood Urea Nitrogen 15 mg/dL (9-16); Calcium 9.9 mg/dL (8.4-10.2); Carbon Dioxide 26 mmol/L (22-29); Chloride 106 mmol/L (96-108); Cholesterol 197 mg/dL (<200); Estimated Glomerular Filt Rate > 60; Glucose Fasting 86 mg/dL (60-99); HDL Cholesterol 71 mg/dL (>40); LDL Cholesterol Calculated 114 mg/dL (<100); Potassium 4.5 mmol/L (3.3-5.1); Sodium 141 mmol/L (135-145); TSH reflex Free T4 1.68 uIU/mL (0.32-4.0); Total Protein 7.4 g/dL (6.5-8.0); Triglycerides 63 mg/dL (<150); Vitamin D 25-OH Total 43.7 ng/mL (>30)
== END 2023-01-09 12:41 | disposition home or self-care (01) ==
LOC: HO.HMGCX 12:40
PROVIDERS: PCP Internal Medicine; Visit Provider Internal Medicine
DX: M25.571 Pain in right ankle and joints of right foot (principal); E78.5 Hyperlipidemia, unspecified; E03.9 Hypothyroidism, unspecified; E55.9 Vitamin D deficiency, unspecified; Z00.00 Encounter for general adult medical examination without abnormal findings
CPT/HCPCS: 36415; 73600; 80053; 80061; 82306; 84443; 85025

== ENCOUNTER 2024-01-04 08:13 | Outpatient (REF) | payer OTHER, SELFPAY ==
--- NOTE | ~2024-01-04 | MM_ITS ---
EXAMINATION: MM SCREENING DIGITAL BREAST TOMOSYNTHESIS, BILATERAL CLINICAL INFORMATION: Screening. Asymptomatic. COMPARISON: Mammography: Comparison is made with available priors TECHNIQUE: Digital breast mammography with tomosynthesis is performed in both the craniocaudal and mediolateral oblique views along with computer-aided detection (CAD). FINDINGS: There are scattered areas of fibroglandular density (ACR BI-RADS breast composition Category b). There are no significant masses, abnormal calcifications, or other abnormalities. MM/MM tomosynthesis screening BI IMPRESSION: No mammographic evidence of malignancy. ASSESSMENT: BI-RADS BI-RADS 1 - Negative RECOMMENDATION: Routine annual mammography screening. 1 year F/U This examination should not preclude the clinical evaluation of a suspicious palpable abnormality. This patient's information was entered into a reminder system with a target due date for their next mammogram. Electronically signed by: Alexa Morales DO 01/18/2024 05:52 PM EDT
== END 2024-01-04 08:14 | disposition home or self-care (01) ==
LOC: HO.MAMMO 08:13
PROVIDERS: PCP Internal Medicine; Visit Provider Internal Medicine
DX: Z12.31 Encounter for screening mammogram for malignant neoplasm of breast (principal)
CPT/HCPCS: 77063; 77067

== ENCOUNTER → 2024-01-04 08:15 | Outpatient (BNV) | payer OTHER, SELFPAY | PROVIDERS: PCP Internal Medicine; Visit Provider Internal Medicine | DX: Z12.31 Encounter for screening mammogram for malignant neoplasm of breast (principal) | CPT/HCPCS: 77063; 77067 ==

== ENCOUNTER 2024-03-14 08:56 | Outpatient (REF) | payer OTHER, SELFPAY ==
[2024-03-14 09:07] LABS: MANUAL DIFF FLAG NO
[2024-03-14 09:38] LABS: Basophils Percent Auto 0.5 % (0-2); Eosinophils Absolute Auto 0.3 X10*3/uL (0.0-0.4); Hematocrit 36.8 % (37.0-47.0); Hemoglobin 12.1 g/dl (12.0-16.0); Imm Gran Abs Auto 0.02 X10*3/uL (0.00-0.03); Imm Gran Pct Auto 0.3 % (0.0-0.4); Lymphocytes Absolute Auto 1.7 X10*3/uL (1.2-4.9); Lymphocytes Percent Auto 27.2 % (20-40); Mean Corpuscular HGB Conc 32.9 g/dl (31.0-35.0); Mean Corpuscular Hemoglobin 29.7 pg (27.0-33.0); Mean Corpuscular Volume 90.4 fL (80.0-98.0); Mean Platelet Volume 11.5 fL (9.4-12.3); Monocytes Absolute Auto 0.5 X10*3/uL (0.1-1.2); Monocytes Percent Auto 7.5 % (2-11); Neutrophils Absolute Auto 3.8 x10*3/uL (2.0-8.3); Neutrophils Percent Auto 60.5 % (45-73); Platelet Count 198 X10*3/uL (160-400); Red Blood Count 4.07 X10*6/uL (4.20-5.50); Red Cell Distribution Width 13.3 % (11.0-16.0); White Blood Count 6.3 X10*3/uL (4.8-10.8)
[2024-03-14 10:46] LABS: Alanine Aminotransferase 19 U/L (0-31); Albumin Level 4.2 g/dL (3.5-5.0); Alkaline Phosphatase 72 U/L (39-117); Anion Gap 10 (12-20); Aspartate Amino Transferase 28 U/L (5-31); Bilirubin Total 0.4 mg/dL (0.0-1.0); Blood Urea Nitrogen 12 mg/dL (9-16); Calcium 9.3 mg/dL (8.4-10.2); Carbon Dioxide 26 mmol/L (22-29); Chloride 111 mmol/L (96-108); Cholesterol 177 mg/dL (<200); Estimated Glomerular Filt Rate > 60; Glucose Fasting 97 mg/dL (60-99); HDL Cholesterol 67 mg/dL (>40); LDL Cholesterol Calculated 99 mg/dL (<100); Potassium 4.2 mmol/L (3.3-5.1); Sodium 143 mmol/L (135-145); TSH reflex Free T4 1.67 uIU/mL (0.32-4.0); Total Protein 6.4 g/dL (6.5-8.0); Triglycerides 58 mg/dL (<150)
== END 2024-03-14 08:57 | disposition home or self-care (01) ==
LOC: HO.LAB 08:56
PROVIDERS: PCP Internal Medicine; Visit Provider Internal Medicine
DX: Z00.00 Encounter for general adult medical examination without abnormal findings (principal); E55.9 Vitamin D deficiency, unspecified; E03.9 Hypothyroidism, unspecified; E78.5 Hyperlipidemia, unspecified
CPT/HCPCS: 36415; 80053; 80061; 82306; 84443; 85025

== ENCOUNTER 2024-03-17 14:02 | Outpatient (AMB) | payer OTHER, SELFPAY ==
[2024-03-17 14:06] VITALS: BP 124/76; PULSE 75; O2SAT 97; BMI 38.4
--- NOTE | 2024-03-17 14:06 | MHC.PC.OV ---
Vital Signs 03/17/24 14:06 Height 5 ft 4 in Weight 224 lb BMI 38.4 BP 124/76 Blood Pressure Location Lt brachial Position Sitting Pulse 75 Pulse Source Pulse Oximeter Pulse Oximetry (%) 97 Oxygen Delivery Method Room Air Intake Visit Reasons: PE Intake Note: Pt is here today for PE. Allergies acetaminophen [Vicodin] Allergy (Unknown, Verified 03/17/24 14:08) rash hydrocodone [Vicodin] Allergy (Unknown, Verified 03/17/24 14:08) rash pravastatin Allergy (Unknown, Verified 03/17/24 14:08) muscle aches sulfamethoxazole [From BACTRIM] Allergy (Unknown, Verified 03/17/24 14:08) UNKNONW trimethoprim [From BACTRIM] Allergy (Unknown, Verified 03/17/24 14:08) UNKNONW oxycodone [OXYCODONE] Adverse Reaction (Unknown, Verified 03/17/24 14:08) NAUSEA Hydrocodone Bitartrate Allergy (Unknown, Uncoded 03/17/24 14:08) rash Pt states no food allergies Allergy (Unknown, Uncoded 03/17/24 14:08) Unknown Medication List - Last Reconciled 03/17/24 by Bonnie Stewart MD atorvastatin 20 mg PO DAILY bupropion HCl SR 200 mg PO BID cetirizine 10 mg PO DAILY PRN clotrimazole-betamethasone 1-0.05 % 1 appl topical BID 30 days esomeprazole magnesium (Nexium 24HR) 20 mg PO DAILY PRN fluticasone propionate 50 mcg/actuation (Flonase Allergy Relief) 2 sprays intranasal DAILY levothyroxine 75 mcg PO DAILY lorazepam 0.5 mg PO DAILY PRN montelukast 10 mg PO BEDTIME sertraline 200 mg (2 x 100 mg) PO DAILY Tobacco use date assessed: 03/17/24 Dental Screening Dental Screen Date: 03/17/24 Did you have a dental visit in the last 12 months?: Yes Did you have a dental problem in the last 6 months where you did not have access to dental care?: No Was dental information given to patient?: Patient has dentist HPI PE HPI Details Patient presents for physical PFSH Medical History Left hip impingement syndrome Hip pain Vitamin D deficiency Factor V Leiden Impaired fasting blood sugar Hyperlipidemia GERD (gastroesophageal reflux disease) Depression Hypothyroidism Surgical History History of removal of cyst History of section History of appendectomy History of colonoscopy Family History Father Cancer of prostate Cardiomyopathy HTN (hypertension) CVD (cardiovascular disease) Myocardial infarction Mother GI obstruction HTN (hypertension) Diabetes mellitus Maternal Grandmother No problems noted. Maternal Grandfather Cancer of prostate Stomach cancer Paternal Grandfather No problems noted. Paternal Grandmother No problems noted. Brother No problems noted. Brother No problems noted. Sister No problems noted. Daughter No problems noted. 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 1. Little interest or pleasure in doing things: not at all 2. Feeling down, depressed, or hopeless: not at all 3. Trouble falling or staying asleep, or sleeping too much: several days 4. Feeling tired or having little energy: not at all 5. Poor appetite or overeating: not at all 6. Feeling bad about yourself - or that you are a failure or have let yourself or your family down: not at all 7. Trouble concentrating on things, such as reading the newspaper or watching television: not at all 8. Moving or speaking so slowly that other people could have noticed. Or the opposite - being so fidgety or restless that you have been moving around a lot more than usual: not at all 9. Thoughts that you would be better off or of hurting yourself in some way: not at all Total score: 1 Depression Screening Interpretation: Negative Depression Screening Done: Yes 41014 - PHQ-9 Billing: Yes Source: Developed by Drs. Alo Degroot, Noris BChristiano Lara and colleagues, with an educational pamella from [email or web address]. Thrive Questionnaire Date Thrive assessed: 03/17/24 I am a: Patient What is your living situation today?: I have a steady place to live Within the past 12 months, did the food you bought not last and you didn't have the money to get more?: Never true Within the past 12 months, did you worry whether your food would run out before you got money to buy more?: Never true Do you have trouble paying for medicines?: No Do you have trouble getting transportation to medical appointments?: No Do you have trouble paying your heating and electricity bill?: No Do you have trouble taking care of your child, family member or friend?: No Do you have trouble with day-to-day activities such as bathing, preparing meals, shopping, managing finances, etc.?: No Are you currently unemployed and looking for a job?: Yes Are you interested in more education?: No Please select the resources that you would like help with: None Currently or been in a relationship where the following occur: No concerns reported THRIVE Score: 0 AUDIT C Alcohol Use Questionnaire (AUDIT-C) 1. How often do you have a drink containing alcohol?: 2-4 times a month 2. How many drinks containing alcohol do you have on a typical day when you are drinking?: 3 or 4 3. How often do you have six or more drinks on one occasion?: Less than monthly Total Score: 4 ELVIS-7 AMB Questionnaire ELVIS-7 Date ELVIS - 7 assessed: 03/17/24 Feeling nervous, anxious, or on edge: 0 = Not at all Not being able to stop or control worryin = Not at all Worrying too much about different things: 0 = Not at all Trouble relaxin = Not at all Being so restless that it is hard to sit still: 0 = Not at all Becoming easily annoyed or irritable: 0 = Not at all Feeling afraid as if something awful might happen: 0 = Not at all Total ELVIS-7 score (0-4 normal; 5-9 mild; 10-14 moderate; 15-21 severe): 0 Source: Developed by Drs. Alo Degroot, Christiano Maurer and colleagues, with an educational pamella from [email or web address]. ELVIS-7 Assessment Billing ELVIS-7 Assessment Tool: ELVIS-7 Assessment 06384 Review of Systems Const All systems reviewed & are unremarkable except as noted in HPI and below Reports no additional complaints Eyes Reports no additional complaints ENT Reports no additional complaints Card Reports no additional complaints Resp Reports no additional complaints GI Reports no additional complaints Reports no additional complaints Physical exam (Primary Care) Vital Signs: Last Vital Signs Pulse 75 03/17/24 14:06 BP 124/76 03/17/24 14:06 Pulse Ox 97 03/17/24 14:06 Oxygen Delivery Method Room Air 03/17/24 14:06 BMI result Body Mass Index 38.4 Tobacco/Smoking Status: Tobacco use Status Tobacco use date assessed 03/17/24 03/17/24 14:13 Patient Tobacco Use Status Former Tobacco user 03/17/24 14:07 e-Cigarette/Vaping Use Never Used 03/17/24 14:07 PHQ-9: PHQ-9 Score PHQ-9: Total score 1 03/17/24 14:13 Depression Screening Interpretation: Negative Thrive Assessment: Date of Thrive Assessment Date Thrive assessed 03/17/24 03/17/24 14:13 Currently or been in a relationship where the following occur: No concerns reported Const General: no acute distress HENMT Head: Yes normal to inspection Mouth: Normal oral and palatal mucosa present Eyes General: appearance normal, both eyes and all related structures Neck Neck: Yes no lymphadenopathy and Yes supple Resp Effort & Inspection: normal respiratory effort Auscultation: clear to auscultation bilaterally Cardio Rhythm: regular rhythm Heart sounds: S1 normal heart sound present and S2 normal heart sound present GI Inspection: Yes normal to inspection Palpation (GI): Soft to palpation Percussion: Yes normal to percussion Auscultation: normal bowel sounds Coding Level of Care Code Est Pt Prev Care 40-64y(08897) Diagnoses Hypothyroidism E03.9 Hyperlipidemia E78.5 Annual physical exam Z00.00 Obesity E66.9 Additional Codes ELVIS-7 Assessment Billing - ELVIS-7 Assessment Tool: ELVIS-7 Assessment 69696 ([id number]) PHQ-9 - 70492 - PHQ-9 Billing: Yes ([id number]) Assessment & Plan Assessment & Plan (1) Hypothyroidism: Code(s): E03.9 - Hypothyroidism, unspecified Category: Medical Plan: CONTINUE LEVOTHYROXINE (2) Hyperlipidemia: Code(s): E78.5 - Hyperlipidemia, unspecified Category: Medical Plan: Continue statin (3) Annual physical exam: Code(s): Z00.00 - Encounter for general adult medical examination without abnormal findings Category: Medical Plan: Well-balanced diet regular physical activity weight loss discussed with the patient she is up-to-date with the mammogram colonoscopy (4) Obesity: Comment: BMI 38.4 02/2024 Code(s): E66.9 - Obesity, unspecified Category: Medical Plan: Patient has been trying to decrease caloric intake increase physical activity for over 6 months. She will benefit from GLP 1 agonist to facilitate weight loss to decrease risk for coronary artery disease LA CVA diabetes. WEGOVY 0.25 MG WEEKLY WILL BE SENT TO THE PHARMACY, to dose will be increased depending on side effects and effect of weight loss Orders: Orders Comprehensive [place]. Panel Fast 1 Year E03.9 - Hypothyroidism, unspecified, E55.9 - Vitamin D deficiency, unspecified, E78.5 - Hyperlipidemia, unspecified, R73.01 - Impaired fasting glucose Lipid Panel 1 Year E03.9 - Hypothyroidism, unspecified, E55.9 - Vitamin D deficiency, unspecified, E78.5 - Hyperlipidemia, unspecified, R73.01 - Impaired fasting glucose Hemoglobin A1c 1 Year E03.9 - Hypothyroidism, unspecified, E55.9 - Vitamin D deficiency, unspecified, E78.5 - Hyperlipidemia, unspecified, R73.01 - Impaired fasting glucose Complete Blood Count Auto Diff 1 Year E03.9 - Hypothyroidism, unspecified, E55.9 - Vitamin D deficiency, unspecified, E78.5 - Hyperlipidemia, unspecified, R73.01 - Impaired fasting glucose TSH reflex Free T4 1 Year E03.9 - Hypothyroidism, unspecified, E55.9 - Vitamin D deficiency, unspecified, E78.5 - Hyperlipidemia, unspecified, R73.01 - Impaired fasting glucose Vitamin D 25-OH Total 1 Year E03.9 - Hypothyroidism, unspecified, E55.9 - Vitamin D deficiency, unspecified, E78.5 - Hyperlipidemia, unspecified, R73.01 - Impaired fasting glucose Medications: New Wegovy (semaglutide (weight loss)) administer weeks 1 through 4 of therapy 0.25 mg (0.5 mL) subcut QWEEK 2 mL 0RF NS Changed From esomeprazole magnesium (Nexium 24HR) 20 mg PO DAILY 90 tabs 0RF To esomeprazole magnesium (Nexium 24HR) 20 mg PO DAILY PRN Refilled levothyroxine 75 mcg PO DAILY 90 tabs 3RF E03.9 - Hypothyroidism, unspecified
== END 2024-03-17 15:27 | disposition home or self-care (01) ==
PROVIDERS: PCP Internal Medicine; Visit Provider Internal Medicine
DX: Z00.00 Encounter for general adult medical examination without abnormal findings (principal); E03.9 Hypothyroidism, unspecified; E66.9 Obesity, unspecified; Z68.38 Body mass index [BMI] 38.0-38.9, adult; E78.5 Hyperlipidemia, unspecified

== ENCOUNTER → 2024-03-17 14:02 | Outpatient (BNVA) | payer OTHER, SELFPAY | PROVIDERS: PCP Internal Medicine; Visit Provider Internal Medicine | DX: Z00.00 Encounter for general adult medical examination without abnormal findings (principal); E03.9 Hypothyroidism, unspecified; E78.5 Hyperlipidemia, unspecified; E66.9 Obesity, unspecified; Z68.38 Body mass index [BMI] 38.0-38.9, adult; Z79.899 Other long term (current) drug therapy | CPT/HCPCS: 96127 ==

== ENCOUNTER 2024-04-18 08:58 | Outpatient (AMB) | payer OTHER, SELFPAY ==
--- NOTE | 2024-04-18 09:38 | AM.OFFWIN_ITS ---
Intake Vital Signs 04/18/24 09:39 BP 128/80 Blood Pressure Location Rt brachial Position Sitting Pulse 66 Pulse Source Pulse Oximeter Pulse Oximetry (%) 100 Oxygen Delivery Method Room Air Intake Visit Reasons: EP bump on RT side of jaw bone [phone] Intake Note: Patient here for lump on right side of jaw that has been present for at least 1 week. Patient Tobacco Use Status: Former Tobacco user Allergies acetaminophen [Vicodin] Allergy (Unknown, Verified 04/18/24 09:38) rash hydrocodone [Vicodin] Allergy (Unknown, Verified 04/18/24 09:38) rash pravastatin Allergy (Unknown, Verified 04/18/24 09:38) muscle aches sulfamethoxazole [From BACTRIM] Allergy (Unknown, Verified 04/18/24 09:38) UNKNONW trimethoprim [From BACTRIM] Allergy (Unknown, Verified 04/18/24 09:38) UNKNONW oxycodone [OXYCODONE] Adverse Reaction (Unknown, Verified 04/18/24 09:38) NAUSEA Hydrocodone Bitartrate Allergy (Unknown, Uncoded 04/18/24 09:38) rash Pt states no food allergies Allergy (Unknown, Uncoded 04/18/24 09:38) Unknown Do you need a note to return to daycare/school/sports/work: No HPI EP bump on RT side of jaw bone [phone] HPI Details This note is constructed using voice recognition software. While every effort has been made to ensure accuracy, ordnance truck installation mechanic errors may have been included. The patient is a 58 year old female who presents to the clinic today with swollen lymph node in the right with discomfort. She denies fever, chills, cough, shortness of breath, difficulty swallowing. She does note some pain with eating food. [facility] Medical History Left hip impingement syndrome Hip pain Vitamin D deficiency Factor V Leiden Impaired fasting blood sugar Hyperlipidemia GERD (gastroesophageal reflux disease) Depression Hypothyroidism Surgical History History of removal of cyst History of section History of appendectomy History of colonoscopy Family History Father Cancer of prostate Cardiomyopathy HTN (hypertension) CVD (cardiovascular disease) Myocardial infarction Mother GI obstruction HTN (hypertension) Diabetes mellitus Maternal Grandmother No problems noted. Maternal Grandfather Cancer of prostate Stomach cancer Paternal Grandfather No problems noted. Paternal Grandmother No problems noted. Brother No problems noted. Brother No problems noted. Sister No problems noted. Daughter No problems noted. 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 Cognitive needs: No Hearing needs: No Vision needs: Yes Review of Systems Const All systems reviewed & are unremarkable except as noted in HPI and below Physical Exam Vital Signs: Last Vital Signs Pulse 66 04/18/24 09:39 BP 128/80 04/18/24 09:39 Pulse Ox 100 04/18/24 09:39 Oxygen Delivery Method Room Air 04/18/24 09:39 Const General: cooperative, healthy appearing, comfortable, no acute distress and well developed Orientation/consciousness: patient oriented x3 Limitations: no limitations HEENT Head: Yes normal to inspection Ears: hearing grossly normal bilaterally General nose exam: Normal external nose present Face and sinus: Yes normal facial exam Eyes General: appearance normal, both eyes and all related structures Neck Neck: Yes normal visual inspection and Yes full ROM Lymphatic: lymphadenopathy (right tonsilar lymphadenopathy 1 cm, tender, mobile. ) Resp Effort & Inspection: normal respiratory effort and able to speak in complete sentences Auscultation: clear to auscultation bilaterally Cardio Rate: regular rate Rhythm: regular rhythm Heart sounds: normal S1 and S2 Skin General skin exam: no rashes or lesions noted Neuro General: patient oriented x3 Assessment & Plan Assessment & Plan (1) Lymphadenopathy: Code(s): R59.1 - Generalized enlarged lymph nodes Plan: Right tonsillar lymphadenopathy, likely infectious etiology. Antibiotics sent for management. Advised patient to present to the emergency room should she develop any high-grade fevers, and shortness of breath, difficulty swallowing. She should follow up with failure to resolve with her PCP or return to clinic. Plan See above for full details and plan. Medications: New amoxicillin-pot clavulanate 875-125 mg 1 tab PO BID 10 days 20 tabs 0RF Coding Level of Care Code Est Pt Level 3 (32307) Diagnoses Lymphadenopathy R59.1
[2024-04-18 09:39] VITALS: BP 128/80; PULSE 66; O2SAT 100
== END 2024-04-18 10:05 | disposition home or self-care (01) ==
PROVIDERS: PCP Internal Medicine; Visit Provider Registered Nurse
DX: R59.1 Generalized enlarged lymph nodes (principal)

== ENCOUNTER 2024-06-14 08:28 | Outpatient (AMB) | payer OTHER, SELFPAY ==
[2024-06-14 08:29] VITALS: BP 104/62; PULSE 75; RESP 18; TEMP 36.8; O2SAT 95; BMI 38.3
--- NOTE | 2024-06-14 08:29 | MHC.PC.OV ---
Vital Signs 06/14/24 08:29 Height 5 ft 4 in Weight 223 lb BMI 38.3 BP 104/62 Blood Pressure Location Lt brachial Position Sitting Respiration 18 Pulse 75 Pulse Source Pulse Oximeter Temp 98.2 F Pulse Oximetry (%) 95 Oxygen Delivery Method Room Air Intake Visit Reasons: problem with nails Allergies acetaminophen [Vicodin] Allergy (Unknown, Verified 06/14/24 08:30) rash hydrocodone [Vicodin] Allergy (Unknown, Verified 06/14/24 08:30) rash pravastatin Allergy (Unknown, Verified 06/14/24 08:30) muscle aches sulfamethoxazole [From BACTRIM] Allergy (Unknown, Verified 06/14/24 08:30) UNKNONW trimethoprim [From BACTRIM] Allergy (Unknown, Verified 06/14/24 08:30) UNKNONW oxycodone [OXYCODONE] Adverse Reaction (Unknown, Verified 04/18/24 09:38) NAUSEA Hydrocodone Bitartrate Allergy (Unknown, Uncoded 06/14/24 08:30) rash Pt states no food allergies Allergy (Unknown, Uncoded 06/14/24 08:30) Unknown Medication List - Last Reconciled 06/14/24 by Bonnie Stewart MD atorvastatin 20 mg PO DAILY bupropion HCl SR 200 mg PO BID cetirizine 10 mg PO DAILY PRN ciclopirox 8% 1 appl topical BEDTIME 4 weeks clotrimazole-betamethasone 1-0.05 % 1 appl topical BID 30 days esomeprazole magnesium (Nexium 24HR) 20 mg PO DAILY PRN fluticasone propionate 50 mcg/actuation (Flonase Allergy Relief) 2 sprays intranasal DAILY levothyroxine 75 mcg PO DAILY lorazepam 0.5 mg PO DAILY PRN montelukast 10 mg PO BEDTIME sertraline 200 mg (2 x 100 mg) PO DAILY Tobacco use date assessed: 06/14/24 Dental Screening Dental Screen Date: 06/14/24 Did you have a dental visit in the last 12 months?: Yes Did you have a dental problem in the last 6 months where you did not have access to dental care?: No Was dental information given to patient?: Patient has dentist HPI problem with nails HPI Details Patient presents complaining of discoloration and thickening of her fingernails she has noticed a few weeks ago. Patient has been applying [id number] solution to improve the growth of her nails for least 3 months. She denies any pain swelling of the nail beds or repetitive trauma to the nails. Hyperlipidemia and hypothyroidism stable on current medications. [facility] Medical History Left hip impingement syndrome Hip pain Vitamin D deficiency Factor V Leiden Impaired fasting blood sugar Hyperlipidemia GERD (gastroesophageal reflux disease) Depression Hypothyroidism Surgical History History of removal of cyst History of section History of appendectomy History of colonoscopy Family History Father Cancer of prostate Cardiomyopathy HTN (hypertension) CVD (cardiovascular disease) Myocardial infarction Mother GI obstruction HTN (hypertension) Diabetes mellitus Maternal Grandmother No problems noted. Maternal Grandfather Cancer of prostate Stomach cancer Paternal Grandfather No problems noted. Paternal Grandmother No problems noted. Brother No problems noted. Brother No problems noted. Sister No problems noted. Daughter No problems noted. 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 1. Little interest or pleasure in doing things: not at all 2. Feeling down, depressed, or hopeless: not at all 3. Trouble falling or staying asleep, or sleeping too much: several days 4. Feeling tired or having little energy: not at all 5. Poor appetite or overeating: not at all 6. Feeling bad about yourself - or that you are a failure or have let yourself or your family down: not at all 7. Trouble concentrating on things, such as reading the newspaper or watching television: not at all 8. Moving or speaking so slowly that other people could have noticed. Or the opposite - being so fidgety or restless that you have been moving around a lot more than usual: not at all 9. Thoughts that you would be better off or of hurting yourself in some way: not at all Total score: 1 Depression Screening Interpretation: Negative Depression Screening Done: Yes 90782 - PHQ-9 Billing: Yes Source: Developed by Drs. Alo Degroot, Christiano Maurer and colleagues, with an educational pamella from [employer]. Thrive Questionnaire Date Thrive assessed: 06/14/24 I am a: Patient What is your living situation today?: I have a steady place to live Within the past 12 months, did the food you bought not last and you didn't have the money to get more?: Never true Within the past 12 months, did you worry whether your food would run out before you got money to buy more?: Never true Do you have trouble paying for medicines?: No Do you have trouble getting transportation to medical appointments?: No Do you have trouble paying your heating and electricity bill?: No Do you have trouble taking care of your child, family member or friend?: No Do you have trouble with day-to-day activities such as bathing, preparing meals, shopping, managing finances, etc.?: No Are you currently unemployed and looking for a job?: No Are you interested in more education?: No Please select the resources that you would like help with: None Currently or been in a relationship where the following occur: I choose not to answer THRIVE Score: 0 ELVIS-7 AMB Questionnaire ELVIS-7 Date ELVIS - 7 assessed: 06/14/24 Feeling nervous, anxious, or on edge: 0 = Not at all Not being able to stop or control worryin = Not at all Worrying too much about different things: 0 = Not at all Trouble relaxin = Not at all Being so restless that it is hard to sit still: 0 = Not at all Becoming easily annoyed or irritable: 0 = Not at all Feeling afraid as if something awful might happen: 0 = Not at all Total ELVIS-7 score (0-4 normal; 5-9 mild; 10-14 moderate; 15-21 severe): 0 Source: Developed by Noris Moreira Kurt Kroenke and colleagues, with an educational pamella from [employer]. ELVIS-7 Assessment Billing ELVIS-7 Assessment Tool: ELVIS-7 Assessment 27743 Review of Systems Const All systems reviewed & are unremarkable except as noted in HPI and below Card Reports no additional complaints Resp Reports no additional complaints GI Reports no additional complaints Reports no additional complaints Physical exam (Primary Care) Vital Signs: Last Vital Signs Temp 98.2 F 06/14/24 08:29 Pulse 75 06/14/24 08:29 Resp 18 06/14/24 08:29 BP 104/62 06/14/24 08:29 Pulse Ox 95 06/14/24 08:29 Oxygen Delivery Method Room Air 06/14/24 08:29 BMI result Body Mass Index 38.3 Tobacco/Smoking Status: Tobacco use Status Tobacco use date assessed 06/14/24 06/14/24 08:31 Patient Tobacco Use Status Former Tobacco user 06/14/24 08:31 e-Cigarette/Vaping Use Never Used 06/14/24 08:31 PHQ-9: PHQ-9 Score PHQ-9: Total score 1 06/14/24 08:36 Depression Screening Interpretation: Negative Thrive Assessment: Date of Thrive Assessment Date Thrive assessed 06/14/24 06/14/24 08:31 Currently or been in a relationship where the following occur: I choose not to answer Const General: no acute distress HENMT Head: Yes normal to inspection Resp Effort & Inspection: normal respiratory effort Auscultation: clear to auscultation bilaterally Cardio Rhythm: regular rhythm Heart sounds: S1 normal heart sound present and S2 normal heart sound present Extrem Other: The whitish discoloration and thickening of the distal part of all fingernails, there are healthy looking fingernails growing proximally to the nailbeds Coding Level of Care Code Est Pt Level 3 (53574) Diagnoses Fingernail abnormalities L60.9 Hyperlipidemia E78.5 Additional Codes ELVIS-7 Assessment Billing - ELVIS-7 Assessment Tool: ELVIS-7 Assessment 32330 ([id number]) PHQ-9 - 91241 - PHQ-9 Billing: Yes ([id number]) Assessment & Plan Assessment & Plan (1) Fingernail abnormalities: Code(s): L60.9 - Nail disorder, unspecified Category: Medical Plan: Patient was advised to stop using the pdpg-wld-egpwrjr topical solution, keep her fingernails short to avoid trauma and she was made aware that will take 6 months to grow out healthy nails. (2) Hyperlipidemia: Code(s): E78.5 - Hyperlipidemia, unspecified Category: Medical Plan: Continue statin
--- OUTSIDE RECORDS SUMMARY | 2024-06-14 08:49 | XMS_ITS | Patient Health Record ---
Author Organization [facility] Address [address] [place] [address] Support Name Relationship Address Phone VANI HOFFMAN Guarantor Unknown Unavailable Reason For Referral No Information Medications Medication SIG (Take, Route, Frequency, Duration) Notes Start Date End Date Status Wellbutrin XL 150MG 1 ORAL daily for -3 Jacobo-MJ 05/19/2011 Active Zoloft 100MG 1 ORAL EVERY MORNING for -3 Jacobo-MJ 05/19/2011 Active Pantoprazole Sodium 40MG 1 ORAL daily for -3 Jacobo-MJ 12/17 Active Problems Problem Type SNOMED Code ICD Code Onset Dates Problem Status W/U Status Risk Notes Problem Neoplasm of uncertain behavior of skin (99894976) Neoplasm of uncertain behavior of skin (238.2) Active confirmed Diag Problem Hyperlipidemia (33805620) Other and unspecified hyperlipidemia (272.4) Active confirmed Major Problem Dysmetabolic syndrome X (232832525) Dysmetabolic Syndrome X (277.7) Active confirmed Major Problem Obesity (213962763) Obesity, unspecified (278.00) Active confirmed Major Problem Depressive disorder (35213572) Depressive disorder, not elsewhere classified (311) Active confirmed Major Problem Disorder of function of stomach (428314684) Dyspepsia and other specified disorders of function of stomach (536.8) Active confirmed Diag Plan Of Treatment No Information Insurance Providers Payer Name Payer Address Payer Phone Subscriber Number Group Number Insured Name Patient Relationship to Insured Coverage Start Date Coverage End Date [facility] [address] [place] [address] [phone] [id number] DALTONSITA DUMASCY Self - patient is the insured
== END 2024-06-14 09:21 | disposition home or self-care (01) ==
PROVIDERS: PCP Internal Medicine; Visit Provider Internal Medicine
DX: L60.9 Nail disorder, unspecified (principal); E78.5 Hyperlipidemia, unspecified

== ENCOUNTER → 2024-06-14 08:28 | Outpatient (BNVA) | payer OTHER, SELFPAY | PROVIDERS: PCP Internal Medicine; Visit Provider Internal Medicine | DX: L60.9 Nail disorder, unspecified (principal); E78.5 Hyperlipidemia, unspecified; Z79.899 Other long term (current) drug therapy | CPT/HCPCS: 96127 ==

== ENCOUNTER 2024-07-22 08:13 | Outpatient (REF) | payer OTHER, SELFPAY ==
[2024-07-22 15:20] LABS: Influenza A PCR NEGATIVE (Negative); Influenza B PCR NEGATIVE (Negative); Resp Syncy Virus RNA Qual PCR NEGATIVE (Negative); SARS COV2 PCR INHOUSE NEGATIVE (Negative)
== END 2024-07-22 08:14 | disposition home or self-care (01) ==
LOC: HO.LAB 08:13
PROVIDERS: Physician Assistant; PCP Internal Medicine
DX: J06.9 Acute upper respiratory infection, unspecified (principal); R09.89 Other specified symptoms and signs involving the circulatory and respiratory systems
CPT/HCPCS: 0241U; 87880

== ENCOUNTER 2024-07-22 08:13 | Outpatient (AMB) | payer OTHER, SELFPAY ==
[2024-07-22 09:12] VITALS: BP 124/78; PULSE 91; TEMP 37.1; O2SAT 99; BMI 37.8
--- NOTE | 2024-07-22 09:12 | AM.OFFWIN_ITS ---
Intake Vital Signs 07/22/24 09:12 Height 5 ft 4 in Weight 220 lb BMI 37.8 BP 124/78 Blood Pressure Location Rt brachial Position Sitting Pulse 91 Pulse Source Pulse Oximeter Temp 98.8 F Temp Source Oral Pulse Oximetry (%) 99 Oxygen Delivery Method Room Air Intake Visit Reasons: EP sore throat, no voice, coughing Intake Note: Patient here for sore throat, loss of voice and cough that has been present for about 3 days. Patient Tobacco Use Status: Former Tobacco user Allergies acetaminophen [Vicodin] Allergy (Unknown, Verified 07/22/24 09:14) rash hydrocodone [Vicodin] Allergy (Unknown, Verified 07/22/24 09:14) rash pravastatin Allergy (Unknown, Verified 07/22/24 09:14) muscle aches sulfamethoxazole [From BACTRIM] Allergy (Unknown, Verified 07/22/24 09:14) UNKNONW trimethoprim [From BACTRIM] Allergy (Unknown, Verified 07/22/24 09:14) UNKNONW oxycodone [OXYCODONE] Adverse Reaction (Unknown, Verified 07/22/24 09:14) NAUSEA Hydrocodone Bitartrate Allergy (Unknown, Uncoded 07/22/24 09:14) rash Pt states no food allergies Allergy (Unknown, Uncoded 07/22/24 09:14) Unknown Do you need a note to return to daycare/school/sports/work: Yes HPI HPI Comments History of Present Illness Details History - The patient is a 59-year-old female pr esenting with a sore throat and loss of voice, progressing to a productive cough and subjective ear fullness over the past four days. - Symptoms typically involve progression from chest to head congestion. - She experienced chills and shaking at night but reported no fever. - Discontinued use of Flonase, allergy p ill and albuterol inhaler after two days due to perceived ineffectiveness. - The cough has been particularly troubl ing, preventing restful sleep. - No history of asthma or COPD, but prev iously prescribed an inhaler following a similar illness last year. Physical Exam General: Cooperative, healthy appearing, comfortable and no acute distress Orientation/consciousness: Patient oriented x3 Limitations: No limitations Head: Normal to inspection Ears: Hearing grossly normal bilaterally, external ears normal and TM's normal bilaterally Nose: Normal external nose present, Normal nares present and No nasal discharge present Face and sinus: Normal facial exam and sinuses tender Mouth: Normal oral and palatal mucosa present and moist mucous membranes Throat: Yes tonsils normal, Yes uvula midline. Posterior oropharynx erythema, no exudates Eyes: Appearance normal, both eyes and all related structures Neck: Normal visual inspection, lymph nodes tender Respiratory: Clear to auscultation bilaterally. Normal respiratory effort, able to speak in complete sentences, no respiratory distress, not tachypneic, no tripod positioning and no use of accessory muscles Cardiovascular: Regular rate and rhythm. Normal S1 and S2 Skin: No rashes or lesions noted Neuro: Patient oriented x3 Extremities: Normal to inspection and Yes no clubbing, cyanosis or edema PFSH Medical History Left hip impingement syndrome Hip pain Vitamin D deficiency Factor V Leiden Impaired fasting blood sugar Hyperlipidemia GERD (gastroesophageal reflux disease) Depression Hypothyroidism Surgical History History of removal of cyst History of section History of appendectomy History of colonoscopy Family History Father Cancer of prostate Cardiomyopathy HTN (hypertension) CVD (cardiovascular disease) Myocardial infarction Mother GI obstruction HTN (hypertension) Diabetes mellitus Maternal Grandmother No problems noted. Maternal Grandfather Cancer of prostate Stomach cancer Paternal Grandfather No problems noted. Paternal Grandmother No problems noted. Brother No problems noted. Brother No problems noted. Sister No problems noted. Daughter No problems noted. 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 Rapid strep negative in office. I suspect the patient is experiencing an upper respiratory infection, characterized by sore throat, cough, and ear fullness. She will continue using Flonase to address congestion symptoms, which can benefit beyond allergy management. Tessalon Perles are prescribed for nighttime to aid in cough suppression and facilitate sleep. Instructions on Flonase use, targeting the nasal passages efficiently, were provided. Viral testing for Flu, COVID-19, and RSV is being conducted, with diagnostic results anticipated by later today. Continuation with Zyrtec and the inhaler will also support symptom management. Further care will depend on test results and symptom progression. Patient was informed and verbally consented to the use of an ambient scribe for clinic note documentation during this visit Orders: Orders SARS-CoV2/FLU/RSV Today R09.89 - Other specified symptoms and signs involving the circulatory and respiratory systems Medications: New benzonatate 200 mg PO BEDTIME PRN 10 caps 0RF cough Coding Level of Care Code Est Pt Level 3 (26489) Diagnoses URI, acute J06.9
== END 2024-07-22 09:34 | disposition home or self-care (01) ==
PROVIDERS: PCP Internal Medicine; Visit Provider Physician Assistant
DX: J06.9 Acute upper respiratory infection, unspecified (principal); Z13.9 Encounter for screening, unspecified

== ENCOUNTER 2024-10-06 13:18 | Outpatient (REF) | payer OTHER, SELFPAY ==
--- NOTE | ~2024-10-06 | XR_ITS ---
EXAMINATION: XR HAND 3 OR MORE VIEWS RIGHT HISTORY: M79.641 - Pain in right hand COMPARISON: There are no prior studies available for comparison. FINDINGS: Three views of the right hand are submitted. Osseous mineralization is normal. There is no fracture or dislocation. The joint spaces are preserved. The soft tissues are unremarkable. XR/XR hand RT min 3V IMPRESSION: Unremarkable examination of the right hand. Electronically signed by: Alo Davis MD 10/06/2024 03:44 PM EDT
--- OUTSIDE RECORDS SUMMARY | 2024-10-06 15:28 | XMS_ITS | Patient Health Record ---
Author Organization [facility] Address [address] [place] [address] Support Name Relationship Address Phone VANI HOFFMAN [...] Problem Neoplasm of uncertain behavior of skin (07224707) Neoplasm of uncertain behavior of skin (238.2) Active confirmed Diag Problem Hyperlipidemia (14563516) Other and unspecified hyperlipidemia (272.4) Active confirmed Major Problem Dysmetabolic syndrome X (756862303) Dysmetabolic Syndrome X (277.7) Active confirmed Major Problem Obesity (895583018) Obesity, unspecified (278.00) Active confirmed Major Problem Depressive disorder (54067124) Depressive disorder, not elsewhere classified (311) Active confirmed Major Problem Disorder of function of stomach (117816078) Dyspepsia and other specified disorders of function of stomach (536.8) Active confirmed Diag Plan Of Treatment No Information Insurance Providers Payer Name Payer Address Payer Phone Subscriber Number Group Number Insured Name Patient Relationship to Insured Coverage Start Date Coverage End Date [facility] [address] [place] [address] [phone] [id number] DALTONVANI DUMAS Self - patient is the insured
== END 2024-10-06 13:19 | disposition home or self-care (01) ==
LOC: HO.HOSX 13:18
DX: M65.941 Unspecified synovitis and tenosynovitis, right hand (principal)
CPT/HCPCS: 20550; 73130; J1100; J2003

== ENCOUNTER 2024-10-06 13:36 | Outpatient (AMB) | payer OTHER, SELFPAY ==
[2024-10-06 13:44] VITALS: BMI 37.8
--- NOTE | 2024-10-06 13:44 | MHC.OFFVIS ---
Vital Signs 10/06/24 13:44 Height 5 ft 4 in Weight 220 lb BMI 37.8 Intake Visit Reasons: New prob-RT thumb pain and stiffness Intake Note: Malinda is a 60 year old female right hand dominate who presents today for a new problem visit for evaluation of right thumb pain and swelling.Patient states that the pain stated four months ago. She states the pain started in the middle finger but now the pain is in the right thumb.Patient reports that she see's a Private Physical Therapist who has been helping with the right thumb. Patient states that ibuprofen and ice is what helps with the pain. Allergies acetaminophen [Vicodin] Allergy (Unknown, Verified 10/06/24 13:49) rash hydrocodone [Vicodin] Allergy (Unknown, Verified 10/06/24 13:49) rash pravastatin Allergy (Unknown, Verified 10/06/24 13:49) muscle aches sulfamethoxazole [From BACTRIM] Allergy (Unknown, Verified 10/06/24 13:49) UNKNONW trimethoprim [From BACTRIM] Allergy (Unknown, Verified 10/06/24 13:49) UNKNONW oxycodone [OXYCODONE] Adverse Reaction (Unknown, Verified 10/06/24 13:49) NAUSEA Hydrocodone Bitartrate Allergy (Unknown, Uncoded 10/06/24 13:49) rash Pt states no food allergies Allergy (Unknown, Uncoded 10/06/24 13:49) Unknown HPI HPI New prob-RT thumb pain and stiffness: Details: Malinda is a 60 year old female right hand dominate who presents today for a new problem visit for evaluation of right thumb pain and swelling.Patient states that the pain stated four months ago. She states the pain started in the middle finger but now the pain is in the right thumb.Patient reports that she see's a Private Physical Therapist who has been helping with the right thumb. Reports that there was significant locking and catching of the right thumb at 1 time, but this has spontaneously resolved. However, the pain is still present and has not improved. Patient states that ibuprofen and ice is what helps with the pain. [facility] Medical History Left hip impingement syndrome Hip pain Vitamin D deficiency Factor V Leiden Impaired fasting blood sugar Hyperlipidemia GERD (gastroesophageal reflux disease) Depression Hypothyroidism Surgical History History of removal of cyst History of section History of appendectomy History of colonoscopy Family History Father Cancer of prostate Cardiomyopathy HTN (hypertension) CVD (cardiovascular disease) Myocardial infarction Mother GI obstruction HTN (hypertension) Diabetes mellitus Maternal Grandmother No problems noted. Maternal Grandfather Cancer of prostate Stomach cancer Paternal Grandfather No problems noted. Paternal Grandmother No problems noted. Brother No problems noted. Brother No problems noted. Sister No problems noted. Daughter No problems noted. 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 Neuro: Normal sensation of the tips of all digits of the right hand at this time Vascular: Cap refill brisk Pain: Tenderness to palpation of the A1 mahad of the right thumb Some discomfort with range of motion of the right thumb ROM: Patient is able to make a closed fist and extend all digits of the right hand fully Skin: No lacerations or abrasions. General: No ecchymosis, erythema, or evidence of infection. Psych: Appears grossly normal Affect normal Attitude cooperative Office Procedures AMB Tendon Injection Tendon Injection [id number] Tendon Sheath Injection All charges added?: Procedure code (CPT) selection complete Assessment & Plan Assessment & Plan (1) Tenosynovitis of finger: Code(s): M65.949 - Unspecified synovitis and tenosynovitis, unspecified hand Category: Medical Plan 1. Pre trigger tenosynovitis of right thumb Patient is educated about this condition Patient is educated about the typical treatment course Patient would like to proceed with steroid injection The risks and benefits of a steroid injection including but not limited to risk of damage to blood vessels, nerves, tendons, infection, skin bleaching, failure to improve symptoms, increased pain, and possible need for further injections or other intervention were discussed with the patient and the patient wishes to proceed with the steroid injection. Once consent was obtained, I sterilely prepped the area over the A1 mahad of the flexor tendon sheath of the right thumb. I then injected the flexor tendon sheath with a combination of 1 mL of dexamethasone (4mg/ml), and 1% lidocaine. The patient tolerated the procedure well with no complications. If the patient continues to have locking and catching 4-6 weeks following this injection, they may call to schedule appointment to discuss alternative treatment options Follow-up prn Orders: Orders XR hand RT min 3V Today M79.641 - Pain in right hand Coding Level of Care Code New Pt Level 3 (73569) Diagnoses Tenosynovitis of finger M65.949 CPT Codes Tendon Injection - Tendon Injection 1: [id number] Tendon Sheath Injection ([id number])
== END 2024-10-06 14:49 | disposition home or self-care (01) ==
LOC: HO.HOS 13:37
PROVIDERS: PCP Physician Assistant
DX: M65.941 Unspecified synovitis and tenosynovitis, right hand (principal)
CPT/HCPCS: 20550; 99213

== ENCOUNTER → 2024-10-06 13:38 | Outpatient (BNV) | payer OTHER, SELFPAY | PROVIDERS: Visit Provider Radiology Diagnostic Radiology | DX: M79.641 Pain in right hand (principal) | CPT/HCPCS: 73130 ==

== ENCOUNTER 2024-10-31 14:41 | Outpatient (AMB) | payer BC, SELFPAY ==
--- NOTE | 2024-10-31 14:54 | MHC.OFFVIS ---
Vital Signs 10/31/24 14:59 Height 5 ft 4 in Weight 220 lb BMI 37.8 Intake Visit Reasons: Rt Thumb Pain, discuss surgery Intake Note: Malinda is a 60 year old female right hand dominate who presents today for a follow up of her pre trigger tenosynovitis of right thumb. States injection from 10/06/24 did not help. Patient is here to discuss surgery. Allergies acetaminophen (Vicodin) Allergy (Unknown, Verified 10/31/24 14:59) rash hydrocodone (Vicodin) Allergy (Unknown, Verified 10/31/24 14:59) rash pravastatin Allergy (Unknown, Verified 10/31/24 14:59) muscle aches sulfamethoxazole (From BACTRIM) Allergy (Unknown, Verified 10/31/24 14:59) UNKNONW trimethoprim (From BACTRIM) Allergy (Unknown, Verified 10/31/24 14:59) UNKNONW oxycodone (OXYCODONE) Adverse Reaction (Unknown, Verified 10/31/24 14:59) NAUSEA Hydrocodone Bitartrate Allergy (Unknown, Uncoded 10/31/24 14:59) rash Pt states no food allergies Allergy (Unknown, Uncoded 10/31/24 14:59) Unknown HPI HPI Rt Thumb Pain, discuss surgery: Details: Malinda is a 60 year old female right hand dominate who presents today for a follow up of her pre trigger tenosynovitis of right thumb. States injection from 10/06/24 did not help. Patient is here to discuss surgery. Patient reports that she has been experiencing an increased frequency of locking and catching of the right thumb since injection, and would like to explore trigger release. Denies numbness or tingling. No other acute complaints or concerns this time. [facility] Medical History Left hip impingement syndrome Hip pain Vitamin D deficiency Factor V Leiden Impaired fasting blood sugar Hyperlipidemia GERD (gastroesophageal reflux disease) Depression Hypothyroidism Surgical History History of removal of cyst History of section History of appendectomy History of colonoscopy Family History Father Cancer of prostate Cardiomyopathy HTN (hypertension) CVD (cardiovascular disease) Myocardial infarction Mother GI obstruction HTN (hypertension) Diabetes mellitus Maternal Grandmother No problems noted. Maternal Grandfather Cancer of prostate Stomach cancer Paternal Grandfather No problems noted. Paternal Grandmother No problems noted. Brother No problems noted. Brother No problems noted. Sister No problems noted. Daughter No problems noted. 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 Neuro: Normal sensation of the tips of all digits of the right hand at this time Vascular: Cap refill brisk Pain: Tenderness to palpation of the A1 mahad of the right thumb Some discomfort with range of motion of the right thumb ROM: Patient is able to make a closed fist and extend all digits of the right hand fully Skin: No lacerations or abrasions. General: No ecchymosis, erythema, or evidence of infection. Psych: Appears grossly normal Affect normal Attitude cooperative Assessment & Plan Assessment & Plan (1) Trigger thumb, right thumb: Code(s): M65.311 - Trigger thumb, right thumb Category: Medical Plan 1. Trigger thumb, right thumb I educated the patient about the condition. I discussed both operative and nonoperative treatment options. The patient would like to proceed with surgery. The risks and benefits of operative treatment were discussed with the patient and the patient wishes to proceed with surgery. These risks include, but are not limited to, risk of damage to blood vessels, nerves, tendons, infection, recurrence, incomplete relief of preoperative symptoms, persistent pain, possible need for further surgery, and the risks associated with regional blocks and/or anesthesia. Plan is to take the patient to the operating room at some point in the next few weeks for the following procedures: 1. Right trigger thumb release under local All of the preoperative paperwork including the consent was discussed today. All of the patient's questions were answered in the clinic today. The patient understands that they will be in contact with our certified surgical technologist to discuss scheduling their procedure. Patient denies diabetes, blood thinners, asthma, heart issues, lung issues, kidney issues, or current smoking. Coding Level of Care Code Est Pt Level 4 (28537) Diagnoses Trigger thumb, right thumb M65.311
[2024-10-31 14:59] VITALS: BMI 37.8
--- OUTSIDE RECORDS SUMMARY | 2024-10-31 15:13 | XMS_ITS | Patient Health Record ---
Author Organization [facility] Address [address] [place] [address] Support Name Relationship Address Phone VANI HOFFMAN Guarantor Unknown Unavailable Reason For Referral No Information Medications Medication SIG (Take, Route, Frequency, Duration) Notes Start Date End Date Status Wellbutrin XL 150MG 1 ORAL daily; Duration: -3 Jacobo-MJ Active Zoloft 100MG 1 ORAL EVERY MORNING ; Duration: -3 Jacobo-MJ 05/19/2011 Active Pantoprazole Sodium 40MG 1 ORAL daily; Duration: -3 Jacobo-MJ 12/18/2011 Active Problems Problem Type SNOMED Code ICD Code Onset Dates Problem Status W/U Status Risk Notes Problem Neoplasm of uncertain behavior of skin (78790993) Neoplasm of uncertain behavior of skin (238.2) Active confirmed Diag Problem Hyperlipidemia (75822173) Other and unspecified hyperlipidemia (272.4) Active confirmed Major Problem Dysmetabolic syndrome X (638661072) Dysmetabolic Syndrome X (277.7) Active confirmed Major Problem Obesity (160062924) Obesity, unspecified (278.00) Active confirmed Major Problem Depressive disorder, not elsewhere classified (311) Active confirmed Major Problem Disorder of function of stomach (178913024) Dyspepsia and other specified disorders of function of stomach (536.8) Active confirmed Diag Plan Of Treatment No Information Insurance Providers Payer Name Payer Address Payer Phone Subscriber Number Group Number Insured Name Patient Relationship to Insured Coverage Start Date Coverage End Date [facility] [address] [place] [address] [phone] [id number] DALTONVANI DUMAS Self - patient is the insured
== END 2024-10-31 15:49 | disposition home or self-care (01) ==
LOC: HO.HOS 14:43
DX: M65.311 Trigger thumb, right thumb (principal)
CPT/HCPCS: 99214

== ENCOUNTER 2024-12-12 11:59 | Day surgery (SDC) | payer OTHER, SELFPAY ==
--- OUTSIDE RECORDS SUMMARY | 2024-11-07 15:01 | XMS_ITS | Patient Health Record ---
Author Organization [facility] Address [address] [place] [address] Support Name Relationship Address Phone VANI HOFFMAN [...] Problem Neoplasm of uncertain behavior of skin (75096081) Neoplasm of uncertain behavior of skin (238.2) Active confirmed Diag Problem Hyperlipidemia (15680400) Other and unspecified hyperlipidemia (272.4) Active confirmed Major Problem Dysmetabolic syndrome X (877893838) Dysmetabolic Syndrome X (277.7) Active confirmed Major Problem Obesity (475756364) Obesity, unspecified (278.00) Active confirmed Major Problem Depressive disorder (70935383) Depressive disorder, not elsewhere classified (311) Active confirmed Major Problem Disorder of function of stomach (570576561) Dyspepsia and other specified disorders of function of stomach (536.8) Active confirmed Diag Plan Of Treatment No Information Insurance Providers Payer Name Payer Address Payer Phone Subscriber Number Group Number Insured Name Patient Relationship to Insured Coverage Start Date Coverage End Date [facility] [address] [place] [address] [id number] DALTONSITA DUMASCY Self - patient is the insured
[2024-12-12 12:10] VITALS: BMI 37.8
[2024-12-12 12:11] VITALS: BP 124/65; PULSE 57; RESP 16; TEMP 36.2; O2SAT 95
--- NOTE | 2024-12-12 13:01 | P.OP_ITS ---
Operative Note Operative Note Date of Service: 12/12/24 Narrative: Operative Note Preop diagnosis: 1. Right thumb Trigger finger Postop diagnosis: Same Procedure: 1. 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 The risks and benefits of operative treatment including but not limited to risk of damage to blood vessels, nerves, tendons, infection, persistent pain, persistent symptoms, recurrence or possible need for additional surgery were discussed with the patient and the patient wishes to proceed with surgery. Procedure: Once consent was obtained a local block was performed in the preop area using a combination of 1% lidocaine with epinephrine. The patient was then brought back to the operating suite and placed on the operative table in supine position. The right upper extremity was prepped and draped in a standard surgical fashion. Once assured that we had a good block, a 1.5 cm oblique incision was made centered over the A1 mahad of the right thumb . The incision was made through the skin to the subcutaneous tissues using a #15 blade. Careful dissection was made down to the level of the A1 mahad using tenotomy scissors, with care being taken to protect the nearby neurovascular structures. A longitudinal incision was made in the A1 mahad 1st using a #15 blade, then using tenotomy scissors under direct visualization. The A1 mahad was noted to be thickened. Following our A1 mahad release, we no longer saw any locking or catching of the digit with flexion and extension. Once satisfied with our A1 mahad release the wound was copiously irrigated with normal saline and hemostasis was obtained with a brief period of local pressure. The skin edges were reapproximated with some 5.0 nylon suture material and a sterile dressing was applied. The patient appears to have tolerated the procedure well and with no complications. All digits were well vascularized at the conclusion of the case.
--- NOTE | 2024-12-12 13:01 | MHC.SHP ---
Pre-Procedural Eval Section A - 24 Hr Update-Section A only Date of Service: 12/12/24 The patient is an INPATIENT: No Changes since office visit: No Cold of Flu in the past 2 weeks, No New Medical Problems, No Changes in Medication and No Patient answered all questions The patient has been examined within 24 hours of the surgical procedure. The History & Physical has been completed within 30 days and I have reviewed it.: Yes Section B - Complete if H&P > 30 days Chief Complaint: Trigger thumb, right thumb Allergies: Allergies Allergy/AdvReac Type Severity Reaction Status Date / Time acetaminophen (Vicodin) Allergy Unknown rash Verified 10/31/24 14:59 hydrocodone (Vicodin) Allergy Unknown rash Verified 10/31/24 14:59 pravastatin Allergy Unknown muscle Verified 10/31/24 14:59 aches sulfamethoxazole (From Allergy Unknown UNKNONW Verified 10/31/24 14:59 BACTRIM) trimethoprim (From BACTRIM) Allergy Unknown UNKNONW Verified 10/31/24 14:59 oxycodone (OXYCODONE) AdvReac Unknown NAUSEA Verified 10/31/24 14:59 Hydrocodone Bitartrate Allergy Unknown rash Uncoded 10/31/24 14:59 Pt states no food allergies Allergy Unknown Unknown Uncoded 10/31/24 14:59 Plan Diagnosis/Plan: Unchanged I have reviewed the history and physical and performed a pertinent physical examination on my patient. No changes have occurred unless specified. Time Spent With Patient Time: Total time managing care of this patient today ____ minutes.
[2024-12-12 14:43] VITALS: BP 143/67; PULSE 99; RESP 16; O2SAT 100
== END 2024-12-12 14:46 ==
PROVIDERS: PCP Internal Medicine; Visit Provider Orthopaedic Surgery
PROC: (CPT 26055; principal; 2024-12-12 13:50)
DX: M65.311 Trigger thumb, right thumb (principal); E55.9 Vitamin D deficiency, unspecified; D68.51 Activated protein C resistance; R73.01 Impaired fasting glucose; E78.5 Hyperlipidemia, unspecified; E03.9 Hypothyroidism, unspecified; K21.9 Gastro-esophageal reflux disease without esophagitis; Z88.2 Allergy status to sulfonamides; Z88.5 Allergy status to narcotic agent; Z88.8 Allergy status to other drugs, medicaments and biological substances; Z98.890 Other specified postprocedural states; Z87.891 Personal history of nicotine dependence
CPT/HCPCS: 26055; J0165; J2003

== ENCOUNTER → 2024-12-12 11:59 | Outpatient (BNV) | payer OTHER, SELFPAY | PROVIDERS: PCP Internal Medicine; Visit Provider Orthopaedic Surgery | DX: M65.311 Trigger thumb, right thumb (principal) | CPT/HCPCS: 26055 ==

== ENCOUNTER 2024-12-27 09:34 | Outpatient (AMB) | payer OTHER, SELFPAY ==
--- NOTE | 2024-12-27 10:06 | A.OFFVIS_ITS ---
Vital Signs 12/27/24 10:07 Height 5 ft 4 in Weight 220 lb BMI 37.8 Intake Visit Reasons: PO-Rt Thumb Trigger 12/12/24 Intake Note: Malinda is a 59 year old right hand dominant female who presents today post- operatively status post Right Thumb Trigger Release performed by Dr. Steven on 12/12/24. Patient reports she is doing well. She report tenderness and redness. She is not taking any pain medications at this time. Sutures were removed and steri strips applied. Allergies acetaminophen (Vicodin) Allergy (Unknown, Verified 12/27/24 10:07) rash hydrocodone (Vicodin) Allergy (Unknown, Verified 12/27/24 10:07) rash pravastatin Allergy (Unknown, Verified 12/27/24 10:07) muscle aches sulfamethoxazole (From BACTRIM) Allergy (Unknown, Verified 12/27/24 10:07) UNKNONW trimethoprim (From BACTRIM) Allergy (Unknown, Verified 12/27/24 10:07) UNKNONW oxycodone (OXYCODONE) Adverse Reaction (Unknown, Verified 12/27/24 10:07) NAUSEA Hydrocodone Bitartrate Allergy (Unknown, Uncoded 12/27/24 10:07) rash Pt states no food allergies Allergy (Unknown, Uncoded 12/27/24 10:07) Unknown HPI HPI PO-Rt Thumb Trigger 12/12/24: Details: Malinda is a 59 year old right hand dominant female who presents today post- operatively status post Right Thumb Trigger Release performed by Dr. Steven on 12/12/24. Patient reports she is doing well. She report tenderness and discoloration, but appears more purple than red. Denies further locking and catching. She is not taking any pain medications at this time. Sutures were removed and steri strips applied. [facility] Medical History Left hip impingement syndrome Hip pain Vitamin D deficiency Factor V Leiden Impaired fasting blood sugar Hyperlipidemia GERD (gastroesophageal reflux disease) Depression Hypothyroidism Surgical History History of removal of cyst History of section History of appendectomy History of colonoscopy Family History Father Cancer of prostate Cardiomyopathy HTN (hypertension) CVD (cardiovascular disease) Myocardial infarction Mother GI obstruction HTN (hypertension) Diabetes mellitus Maternal Grandmother No problems noted. Maternal Grandfather Cancer of prostate Stomach cancer Paternal Grandfather No problems noted. Paternal Grandmother No problems noted. Brother No problems noted. Brother No problems noted. Sister No problems noted. Daughter No problems noted. 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 Neuro: Normal sensation of the tips of all digits of the right hand at this time Vascular: Cap refill brisk Pain: Tenderness to palpation of the incision over the A1 mahad of the right thumb Some discomfort with range of motion of the right thumb ROM: Patient is able to make a closed fist and extend all digits of the right hand fully Skin: Well approximated and well healing incision noted over the A1 mahad of the right thumb No lacerations or abrasions. General: There is some purple discoloration around the incision site, no erythema No ecchymosis, erythema, or evidence of infection. Psych: Appears grossly normal Affect normal Attitude cooperative Assessment & Plan Assessment & Plan (1) Trigger thumb, right thumb: Code(s): M65.311 - Trigger thumb, right thumb Category: Medical Plan 1. Trigger thumb, right thumb Status post trigger release with symptom resolution postoperatively, DOS 12/12/2024 Patient appears to be recovering well postoperatively Patient is educated about the typical recovery course The patient is offered a referral to occupational therapy, as I feel she may be developing a hypersensitivity reaction around the incision site, however she declines, stating she can desensitize the area herself at home Patient is educated to rub the area with different textures, temperature is, and consistencies, to request the nerves with normal sensation Patient understands this and is amenable to this plan Follow-up as needed Coding Level of Care Code Global (29920) Diagnoses Trigger thumb, right thumb M65.311
[2024-12-27 10:07] VITALS: BMI 37.8
--- OUTSIDE RECORDS SUMMARY | 2024-12-27 10:40 | XMS_ITS | Patient Health Record ---
Author Organization [facility] Address [address] [place] [address] Support Name Relationship Address Phone VANI HOFFMAN [...] Problem Neoplasm of uncertain behavior of skin (33759338) Neoplasm of uncertain behavior of skin (238.2) Active confirmed Diag Problem Hyperlipidemia (66428920) Other and unspecified hyperlipidemia (272.4) Active confirmed Major Problem Dysmetabolic syndrome X (456494657) Dysmetabolic Syndrome X (277.7) Active confirmed Major Problem Obesity (318920986) Obesity, unspecified (278.00) Active confirmed Major Problem Depressive disorder (82292573) Depressive disorder, not elsewhere classified (311) Active confirmed Major Problem Disorder of function of stomach (018246871) Dyspepsia and other specified disorders of function of stomach (536.8) Active confirmed Diag Plan Of Treatment No Information Insurance Providers Payer Name Payer Address Payer Phone Subscriber Number Group Number Insured Name Patient Relationship to Insured Coverage Start Date Coverage End Date [facility] [address] [place] [address] [id number] DALTONVANI DUMAS Self - patient is the insured
== END 2024-12-27 10:15 | disposition home or self-care (01) ==
LOC: HO.HOS 09:35
PROVIDERS: PCP Internal Medicine
DX: M65.311 Trigger thumb, right thumb (principal)
CPT/HCPCS: 99024

== ENCOUNTER 2025-01-09 08:25 | Outpatient (REF) | payer OTHER, SELFPAY ==
--- NOTE | ~2025-01-09 | MM_ITS ---
EXAMINATION: MM SCREENING DIGITAL BREAST TOMOSYNTHESIS, BILATERAL CLINICAL INFORMATION: Screening. Asymptomatic. COMPARISON: Mammography: Comparison is made with available priors TECHNIQUE: Digital breast mammography with tomosynthesis is performed in both the craniocaudal and mediolateral oblique views along with computer-aided detection (CAD). FINDINGS: There are scattered areas of fibroglandular density (ACR BI-RADS breast composition Category b). There are no significant masses, abnormal calcifications, or other abnormalities. MM/MM tomosynthesis screening BI IMPRESSION: No mammographic evidence of malignancy. ASSESSMENT: BI-RADS BI-RADS 1 - Negative RECOMMENDATION: Routine annual mammography screening. 1 year F/U This examination should not preclude the clinical evaluation of a suspicious palpable abnormality. This patient's information was entered into a reminder system with a target due date for their next mammogram. Electronically signed by: Alexa Morales DO 01/10/2025 04:26 PM EDT
--- OUTSIDE RECORDS SUMMARY | 2025-01-09 09:29 | XMS_ITS | Patient Health Record ---
Author Organization [facility] Address [address] [place] [address] Support Name Relationship Address Phone VANI HOFFMAN [...] Problem Neoplasm of uncertain behavior of skin (36426111) Neoplasm of uncertain behavior of skin (238.2) Active confirmed Diag Problem Hyperlipidemia (93752945) Other and unspecified hyperlipidemia (272.4) Active confirmed Major Problem Dysmetabolic syndrome X (658874726) Dysmetabolic Syndrome X (277.7) Active confirmed Major Problem Obesity (182278634) Obesity, unspecified (278.00) Active confirmed Major Problem Depressive disorder (67656729) Depressive disorder, not elsewhere classified (311) Active confirmed Major Problem Disorder of function of stomach (592809985) Dyspepsia and other specified disorders of function of stomach (536.8) Active confirmed Diag Plan Of Treatment No Information Insurance Providers Payer Name Payer Address Payer Phone Subscriber Number Group Number Insured Name Patient Relationship to Insured Coverage Start Date Coverage End Date [facility] [address] [place] [address] [id number] DALTONVANI DUMAS Self - patient is the insured
== END 2025-01-09 08:26 | disposition home or self-care (01) ==
LOC: HO.MAMMO 08:25
PROVIDERS: PCP Internal Medicine; Visit Provider Internal Medicine
DX: Z12.31 Encounter for screening mammogram for malignant neoplasm of breast (principal)
CPT/HCPCS: 77063; 77067

== ENCOUNTER → 2025-01-09 08:30 | Outpatient (BNV) | payer OTHER, SELFPAY | PROVIDERS: PCP Internal Medicine; Visit Provider Internal Medicine | DX: Z12.31 Encounter for screening mammogram for malignant neoplasm of breast (principal) | CPT/HCPCS: 77063; 77067 ==

== ENCOUNTER 2025-02-08 13:42 | Outpatient (AMB) | payer OTHER, SELFPAY ==
[2025-02-08 13:44] VITALS: BP 110/72; PULSE 72; RESP 16; TEMP 36.8; O2SAT 98; BMI 38.8
--- NOTE | 2025-02-08 13:44 | AM.OFFWIN_ITS ---
Intake Vital Signs 02/08/25 13:44 Height 5 ft 4 in Weight 226 lb BMI 38.8 BP 110/72 Blood Pressure Location Lt brachial Position Sitting Respiration 16 Pulse 72 Pulse Source Pulse Oximeter Temp 98.2 F Temp Source Oral Pulse Oximetry (%) 98 Intake Visit Reasons: EP Cyst on scalp, burst?, Scalp cyst Intake Note: 3wk scalp cyst with pain Patient Tobacco Use Status: Former Tobacco user Director Of Online Education Required: No Accompanied by: Self / Same As Patient Allergies acetaminophen (Vicodin) Allergy (Unknown, Verified 02/08/25 13:46) rash hydrocodone (Vicodin) Allergy (Unknown, Verified 02/08/25 13:46) rash pravastatin Allergy (Unknown, Verified 02/08/25 13:46) muscle aches sulfamethoxazole (From BACTRIM) Allergy (Unknown, Verified 02/08/25 13:46) UNKNONW trimethoprim (From BACTRIM) Allergy (Unknown, Verified 02/08/25 13:46) UNKNONW oxycodone (OXYCODONE) Adverse Reaction (Unknown, Verified 02/08/25 13:46) NAUSEA Hydrocodone Bitartrate Allergy (Unknown, Uncoded 12/27/24 10:07) rash Pt states no food allergies Allergy (Unknown, Uncoded 12/27/24 10:07) Unknown HPI Skin Lesion/Cyst/Abscess History of Present Illness Details left parietal scalp has 1cm indurated raised abscess which is draining very small amount of purulent fluid and blood. also has 2 very small/0.5cm raised mobile, firm lesions on left temoral and right temporal Side left Bleeding Yes Drainage purulent discharge Similar lesions No Prior biopsy No Prior I&D No HPI Comments History of Present Illness Details History of Present Illness - The patient is a 59-year-old female pr esenting with recurrent lipomas. - The patient reports having benign cyst s, which were surgically removed in 2019. - The lipomas have recurred in different locations, with one becoming pa rticularly painful and suspected to have burst recently, it is on the top left of her head. - The patient experienced significant pa in and pressure of this area, which subsided after the suspected rupture of the abscess last evening. - The patient has no history of MRSA and reports a family history of similar cysts in her grandmother. - Patient did not want me to do I&D as v mahendra sensitive and painful still. It is draining. Physical Exam General: Cooperative, healthy appearing, comfortable, no acute distress and well developed Orientation: Patient oriented x3 Limitations: No limitations Head: Normal to inspection Ears: Hearing grossly normal bilaterally Nose: Normal External nose present Face and sinus: Normal facial exam Eyes: Appearance normal, both eyes and all related structures Neck: Normal visual inspection and Yes full ROM Respiratory: Normal respiratory effort and able to speak in complete sentences. Skin: see below Neuro: Patient oriented x3 Extremities: Normal to inspection Review of Systems - Integumentary: Reports tenderness and drainage from abscess, denies fever All systems reviewed and are unremarkable except as noted in HPI [facility] Medical History Left hip impingement syndrome Hip pain Vitamin D deficiency Factor V Leiden Impaired fasting blood sugar Hyperlipidemia GERD (gastroesophageal reflux disease) Depression Hypothyroidism Surgical History History of removal of cyst History of section History of appendectomy History of colonoscopy Family History Father Cancer of prostate Cardiomyopathy HTN (hypertension) CVD (cardiovascular disease) Myocardial infarction Mother GI obstruction HTN (hypertension) Diabetes mellitus Maternal Grandmother No problems noted. Maternal Grandfather Cancer of prostate Stomach cancer Paternal Grandfather No problems noted. Paternal Grandmother No problems noted. Brother No problems noted. Brother No problems noted. Sister No problems noted. Daughter No problems noted. 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 - The patient has been advised to use hot showers and massage to aid drainage, and antibiotics have been prescribed to manage the infection. - Prescribed antibiotics, Doxycycline for 7 days, may discontinue after 5 days if abscess is resolved. - Monitor for signs of worsening infection, such as fever or increased pain, and return if symptoms persist. (2) Lipoma: Code(s): D17.9 - Benign lipomatous neoplasm, unspecified Qualifiers: Lipoma location: head Qualified Code(s): D17.0 - Benign lipomatous neoplasm of skin and subcutaneous tissue of head, face and neck Plan: - Has what appear to be 2 smaller Lipomas - Follow up with PCP for to surgery for removal of recurrent lipomas, as discussed with the patient. She has an appt with PCP in a few weeks. Medications: New doxycycline hyclate 100 mg PO BID 14 tabs 0RF Coding Level of Care Code Est Pt Level 4 (18329) Diagnoses Scalp cyst L72.9 Lipoma of head D17.0 Lipoma location: head
--- OUTSIDE RECORDS SUMMARY | 2025-02-08 16:02 | XMS_ITS | Patient Health Record ---
Author Organization [facility] Address [address] [place] [address] Support Name Relationship Address Phone VANI HOFFMAN [...] Problem Neoplasm of uncertain behavior of skin (43625488) Neoplasm of uncertain behavior of skin (238.2) Active confirmed Diag Problem Hyperlipidemia (03247557) Other and unspecified hyperlipidemia (272.4) Active confirmed Major Problem Dysmetabolic syndrome X (704179412) Dysmetabolic Syndrome X (277.7) Active confirmed Major Problem Obesity (283890568) Obesity, unspecified (278.00) Active confirmed Major Problem Depressive disorder (79838919) Depressive disorder, not elsewhere classified (311) Active confirmed Major Problem Disorder of function of stomach (433672044) Dyspepsia and other specified disorders of function of stomach (536.8) Active confirmed Diag Plan Of Treatment No Information Insurance Providers Payer Name Payer Address Payer Phone Subscriber Number Group Number Insured Name Patient Relationship to Insured Coverage Start Date Coverage End Date [facility] [address] [place] [address] [id number] DALTONVANI DUMAS Self - patient is the insured
== END 2025-02-08 14:13 | disposition home or self-care (01) ==
PROVIDERS: PCP Internal Medicine; Visit Provider Physician Assistant
DX: L72.9 Follicular cyst of the skin and subcutaneous tissue, unspecified (principal); D17.0 Benign lipomatous neoplasm of skin and subcutaneous tissue of head, face and neck

== ENCOUNTER 2025-02-20 13:53 | Outpatient (AMB) | payer OTHER, SELFPAY ==
--- NOTE | 2025-02-20 14:29 | A.OFFPC_ITS ---
Vital Signs 02/20/25 14:30 Height 5 ft 4 in Weight 205 lb BMI 35.2 BP 120/68 Blood Pressure Location Lt brachial Position Sitting Respiration 18 Pulse 78 Pulse Source Pulse Oximeter Temp 98.1 F Temp Source Oral Pulse Oximetry (%) 98 Oxygen Delivery Method Room Air Intake Visit Reasons: Discuss/document weight loss med Intake Note: Pt is here today for a follow up visit to discuss weight loss. Allergies acetaminophen (Vicodin) Allergy (Unknown, Verified 02/08/25 13:46) rash hydrocodone (Vicodin) Allergy (Unknown, Verified 02/08/25 13:46) rash pravastatin Allergy (Unknown, Verified 02/08/25 13:46) muscle aches sulfamethoxazole (From BACTRIM) Allergy (Unknown, Verified 02/08/25 13:46) UNKNONW trimethoprim (From BACTRIM) Allergy (Unknown, Verified 02/08/25 13:46) UNKNONW oxycodone (OXYCODONE) Adverse Reaction (Unknown, Verified 02/08/25 13:46) NAUSEA Hydrocodone Bitartrate Allergy (Unknown, Uncoded 12/27/24 10:07) rash Pt states no food allergies Allergy (Unknown, Uncoded 12/27/24 10:07) Unknown Medication List - Last Reconciled 02/20/25 by Bonnie Stewart MD atorvastatin 20 mg PO DAILY bupropion HCl SR 200 mg PO BID cetirizine 10 mg PO DAILY clotrimazole-betamethasone 1-0.05 % 1 appl topical BID 30 days fluticasone propionate 50 mcg/actuation (Flonase Allergy Relief) 2 sprays intranasal DAILY levothyroxine 75 mcg PO DAILY lorazepam 0.5 mg PO DAILY PRN montelukast 10 mg PO BEDTIME pantoprazole 40 mg PO DAILY sertraline 200 mg (2 x 100 mg) PO DAILY tirzepatide (weight loss) (Zepbound) 2.5 mg (0.5 mL) subcut QWEEK Tobacco use date assessed: 02/20/25 Dental Screening Dental Screen Date: 06/14/24 HPI Discuss/document weight loss med HPI Details Patient presents for the follow-up. She has been decreasing caloric intake increasing physical activity in order to lose weight for more than 6 months. Patient took Zepbound for 1 month which helped her to lose 10 lb but her insurance does not cover it. Wegovy is a preferred on formulary. Patient complains of irritated lesion on the top of her scalp which she would like to have evaluated by general surgeon. Patient reports of chronic GERD symptoms after eating pizza or tomato sauce. She denies dysphagia odynophagia, hematochezia or melena. Patient has been taking pantoprazole with good relief. Chronic depression is stable on current medications. [facility] Medical History (Updated 02/20/25 @ 15:38 by Bonnie Stewart MD) Obesity Seborrheic keratosis Left hip impingement syndrome Hip pain Vitamin D deficiency Factor V Leiden Impaired fasting blood sugar Hyperlipidemia GERD (gastroesophageal reflux disease) Depression Hypothyroidism Surgical History History of removal of cyst History of section History of appendectomy History of colonoscopy Family History Father Cancer of prostate Cardiomyopathy HTN (hypertension) CVD (cardiovascular disease) Myocardial infarction Mother GI obstruction HTN (hypertension) Diabetes mellitus Maternal Grandmother No problems noted. Maternal Grandfather Cancer of prostate Stomach cancer Paternal Grandfather No problems noted. Paternal Grandmother No problems noted. Brother No problems noted. Brother No problems noted. Sister No problems noted. Daughter No problems noted. 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 1. Little interest or pleasure in doing things: several days 2. Feeling down, depressed, or hopeless: several days 3. Trouble falling or staying asleep, or sleeping too much: several days 4. Feeling tired or having little energy: several days 5. Poor appetite or overeating: several days 6. Feeling bad about yourself - or that you are a failure or have let yourself or your family down: not at all 7. Trouble concentrating on things, such as reading the newspaper or watching television: not at all 8. Moving or speaking so slowly that other people could have noticed. Or the opposite - being so fidgety or restless that you have been moving around a lot more than usual: not at all 9. Thoughts that you would be better off or of hurting yourself in some way: not at all Total score: 5 Depression Screening Interpretation: Negative Depression Screening Done: Yes Source: Developed by Drs. Alo Degroot, Noris Robert, Christiano Livingston and colleagues, with an educational pamella from [employer]. Thrive Questionnaire Date Thrive assessed: 06/14/24 Do you have trouble with day-to-day activities such as bathing, preparing meals, shopping, managing finances, etc.?: No Are you currently unemployed and looking for a job?: No Are you interested in more education?: No Please select the resources that you would like help with: None Currently or been in a relationship where the following occur: I choose not to answer THRIVE Score: 0 AUDIT C Alcohol Use Questionnaire (AUDIT-C) 1. How often do you have a drink containing alcohol?: Monthly or less 2. How many drinks containing alcohol do you have on a typical day when you are drinking?: 3 or 4 3. How often do you have six or more drinks on one occasion?: Never Total Score: 2 ELVIS-7 AMB Questionnaire ELVIS-7 Date ELVIS - 7 assessed: 06/14/24 Feeling nervous, anxious, or on edge: 1 = Several days Not being able to stop or control worryin = Not at all Worrying too much about different things: 1 = Several days Trouble relaxin = Not at all Being so restless that it is hard to sit still: 0 = Not at all Becoming easily annoyed or irritable: 1 = Several days Feeling afraid as if something awful might happen: 0 = Not at all Total ELVIS-7 score (0-4 normal; 5-9 mild; 10-14 moderate; 15-21 severe): 3 Source: Developed by Drs. Alo Degroot, Christiano Maurer and colleagues, with an educational pamella from [employer]. Review of Systems Const All systems reviewed & are unremarkable except as noted in HPI and below Eyes Reports no additional complaints ENT Reports no additional complaints Card Reports no additional complaints Resp Reports no additional complaints GI Reports no additional complaints Reports no additional complaints Physical exam (Primary Care) Vital Signs: Last Vital Signs Temp 98.1 F 02/20/25 14:30 Pulse 78 02/20/25 14:30 Resp 18 02/20/25 14:30 BP 120/68 02/20/25 14:30 Pulse Ox 98 02/20/25 14:30 Oxygen Delivery Method Room Air 02/20/25 14:30 BMI result Body Mass Index 35.2 Tobacco/Smoking Status: Tobacco use Status Tobacco use date assessed 02/20/25 02/20/25 14:37 Patient Tobacco Use Status Former Tobacco user 02/20/25 14:29 e-Cigarette/Vaping Use Never Used 02/20/25 14:29 PHQ-9: PHQ-9 Score PHQ-9: Total score 5 02/20/25 14:29 Depression Screening Interpretation: Negative Thrive Assessment: Date of Thrive Assessment Date Thrive assessed 06/14/24 02/20/25 14:29 Currently or been in a relationship where the following occur: I choose not to answer Const General: no acute distress HENMT Other: Irritated seborrheic keratosis on top of scalp Head: Yes normal to inspection Face and sinus: Yes normal facial exam Neck Neck: Yes no lymphadenopathy and Yes supple Resp Effort & Inspection: normal respiratory effort Auscultation: clear to auscultation bilaterally Cardio Rhythm: regular rhythm Heart sounds: S1 normal heart sound present and S2 normal heart sound present GI Inspection: Yes normal to inspection Palpation (GI): Soft to palpation Percussion: Yes normal to percussion Auscultation: normal bowel sounds Coding Level of Care Code Est Pt Level 4 (05482) Diagnoses Seborrheic keratosis L82.1 Hyperlipidemia E78.5 Obesity E66.9 Hypothyroidism E03.9 Impaired fasting blood sugar R73.01 Assessment & Plan Assessment & Plan (1) Seborrheic keratosis: Comment: on scalp Code(s): L82.1 - Other seborrheic keratosis Category: Medical Plan: Patient requested referral to general surgeon (2) Hyperlipidemia: Code(s): E78.5 - Hyperlipidemia, unspecified Category: Medical Plan: Continue statin (3) Obesity: Comment: BMI 38.4 02/2024 Code(s): E66.9 - Obesity, unspecified Category: Medical Plan: Continue lower caloric diet and regular physical activity. Wegovy 0.25 mg weekly will be started the dose will be increased after month if tolerated (4) Hypothyroidism: Code(s): E03.9 - Hypothyroidism, unspecified Category: Medical Plan: Continue levothyroxine (5) Impaired fasting blood sugar: Code(s): R73.01 - Impaired fasting glucose Category: Medical Plan: Continue ADA diet patient will return for fasting blood work and physical in 1 month. She will be referred to GI for overdue colonoscopy Orders: Referrals General Surgery Referral L82.1 - Other seborrheic keratosis Gastroenterology Referral Z00.00 - Encounter for general adult medical examination without abnormal findings Medications: New Wegovy (semaglutide (weight loss)) 0.25 mg (0.5 mL) subcut Q7D 2 mL 0RF NS Discontinued tirzepatide (weight loss) (Zepbound) Discontinued Reason: Doctor's Order 2.5 mg (0.5 mL) subcut QWEEK 2 mL 0RF
[2025-02-20 14:30] VITALS: BP 120/68; PULSE 78; RESP 18; TEMP 36.7; O2SAT 98; BMI 35.2
--- OUTSIDE RECORDS SUMMARY | 2025-02-20 17:34 | XMS_ITS | Patient Health Record ---
Author Organization [facility] Address [address] [place] [address] Support Name Relationship Address Phone VANI HOFFMAN [...] Problem Neoplasm of uncertain behavior of skin (18776184) Neoplasm of uncertain behavior of skin (238.2) Active confirmed Diag Problem Hyperlipidemia (37312160) Other and unspecified hyperlipidemia (272.4) Active confirmed Major Problem Dysmetabolic syndrome X (662585142) Dysmetabolic Syndrome X (277.7) Active confirmed Major Problem Obesity (130990930) Obesity, unspecified (278.00) Active confirmed Major Problem Depressive disorder (81635854) Depressive disorder, not elsewhere classified (311) Active confirmed Major Problem Disorder of function of stomach (641049189) Dyspepsia and other specified disorders of function of stomach (536.8) Active confirmed Diag Plan Of Treatment No Information Insurance Providers Payer Name Payer Address Payer Phone Subscriber Number Group Number Insured Name Patient Relationship to Insured Coverage Start Date Coverage End Date [facility] [address] [place] [address] [id number] DALTONVANI DUMAS Self - patient is the insured
== END 2025-02-20 15:41 | disposition home or self-care (01) ==
LOC: HO.HMCC 13:54
PROVIDERS: PCP Internal Medicine; Visit Provider Internal Medicine
DX: E78.5 Hyperlipidemia, unspecified (principal); L82.1 Other seborrheic keratosis; E66.9 Obesity, unspecified; Z68.35 Body mass index [BMI] 35.0-35.9, adult; E03.9 Hypothyroidism, unspecified; R73.01 Impaired fasting glucose

== ENCOUNTER 2025-04-10 14:26 | Outpatient (AMB) | payer OTHER, SELFPAY ==
--- NOTE | 2025-04-10 14:34 | A.OFFVIS_ITS ---
Vital Signs 3 04/10/25 14:43 Height 5 ft 4 in Weight 209 lb 4 oz BMI 35.9 BP 117/63 Blood Pressure Location Lt brachial Position Sitting Pulse 55 Intake Visit Reasons: seborrheic keratosis Intake Note: Patient is seen in office for evaluation of multiple lipomas of the scalp. 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 Accompanied by: Self / Same As Patient Allergies acetaminophen (Vicodin) Allergy (Unknown, Verified 04/10/25 14:41) rash hydrocodone (Vicodin) Allergy (Unknown, Verified 04/10/25 14:41) rash pravastatin Allergy (Unknown, Verified 04/10/25 14:41) muscle aches sulfamethoxazole (From BACTRIM) Allergy (Unknown, Verified 04/10/25 14:41) UNKNONW trimethoprim (From BACTRIM) Allergy (Unknown, Verified 04/10/25 14:41) UNKNONW oxycodone (OXYCODONE) Adverse Reaction (Unknown, Verified 04/10/25 14:41) NAUSEA Hydrocodone Bitartrate Allergy (Unknown, Uncoded 04/10/25 14:41) rash Pt states no food allergies Allergy (Unknown, Uncoded 04/10/25 14:41) Unknown Medication List - Last Reconciled 04/10/25 by Mina Falcon MD atorvastatin 20 mg PO DAILY bupropion HCl SR 200 mg PO BID cetirizine 10 mg PO DAILY clotrimazole-betamethasone 1-0.05 % 1 appl topical BID 30 days fluticasone propionate 50 mcg/actuation (Flonase Allergy Relief) 2 sprays intranasal DAILY levothyroxine 75 mcg PO DAILY lorazepam 0.5 mg PO DAILY PRN montelukast 10 mg PO BEDTIME pantoprazole 40 mg PO DAILY sertraline 200 mg (2 x 100 mg) PO DAILY Wegovy (semaglutide (weight loss)) 0.25 mg (0.5 mL) subcut Q7D NS HPI Comments Details: 59-year-old female patient presenting for evaluation of a recently infected scalp cyst. She has a prior history of Pilar cyst which have previously been removed by Dr. Lawton. She recently developed a larger cyst to the left of midline which grew rapidly and became very painful. The cyst subsequently ruptured producing a large amount of pus. She was subsequently evaluated in the emergency department and started on antibiotics. She now reports that the cyst has completely healed and she is no longer able to feel any residual cystic collection at the site. She does have 2 additional Pilar cysts on either side of her scalp which are asymptomatic and have not changed significantly. She does note some alopecia at the site of the recently infected cyst. She presents today for discussion regarding management of this previously infected cyst. [facility] Medical History Obesity Seborrheic keratosis Left hip impingement syndrome Hip pain Vitamin D deficiency Factor V Leiden Impaired fasting blood sugar Hyperlipidemia GERD (gastroesophageal reflux disease) Depression Hypothyroidism Surgical History History of removal of cyst History of section History of appendectomy History of colonoscopy Family History Father Cancer of prostate Cardiomyopathy HTN (hypertension) CVD (cardiovascular disease) Myocardial infarction Mother GI obstruction HTN (hypertension) Diabetes mellitus Maternal Grandmother No problems noted. Maternal Grandfather Cancer of prostate Stomach cancer Paternal Grandfather No problems noted. Paternal Grandmother No problems noted. Brother No problems noted. Brother No problems noted. Sister No problems noted. Daughter No problems noted. 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 [employer] hand Cognitive needs: No Hearing needs: No Vision needs: Yes Review of Systems Const All systems reviewed & are unremarkable except as noted in HPI and below Physical Exam Vital Signs: Last Vital Signs Pulse 55 04/10/25 14:43 BP 117/63 04/10/25 14:43 BMI result Body Mass Index 35.9 Const General: comfortable Nutritional Appearance: well nourished Orientation/consciousness: patient oriented x3 Limitations: no limitations HEENT Head images: 2 1. Site of previously infected skin cyst to the left of midline, parietal scalp. No palpable residual cyst is noted. Wounds are completely healed with a surrounding area of alopecia. No discharge could be expressed. 2. Palpable small Pilar cyst nontender to palpation approximately 0.75 cm 3. Palpable small Pilar cyst approximately 0.5 cm Resp Effort & Inspection: normal respiratory effort, no audible wheezes, no cough and no respiratory distress GI Inspection: Yes normal to inspection Skin Other: Warm, dry, no rash Neuro General: patient oriented x3 Extrem General: Yes no clubbing, cyanosis or edema Assessment & Plan Assessment & Plan (1) Dermoid cyst of scalp: Code(s): D23.4 - Other benign neoplasm of skin of scalp and neck Category: Medical Plan 59-year-old female patient presenting with a recently infected dermoid cyst of the scalp which subsequently ruptured in his now completely healed. No residual cystic collection is identified at this time in the site has completely healed with no drainage. Several smaller asymptomatic Pilar cysts are noted on either side scalp. As there was no further palpable cyst at the site of the recent infection, no surgical intervention is recommended at this time. I recommended that she monitor this area and if a lump is developing, I would encourage her to call for follow up evaluation. She expressed understanding and agrees with the plan. Coding Level of Care Code New Pt Level 4 (40732) Diagnoses Dermoid cyst of scalp D23.4
[2025-04-10 14:43] VITALS: BP 117/63; PULSE 55; BMI 35.9
--- OUTSIDE RECORDS SUMMARY | 2025-04-10 20:52 | XMS_ITS | Patient Health Record ---
Author Organization [facility] Address [address] [place] [address] Support Name Relationship Address Phone VANI HOFFMAN [...] Problem Neoplasm of uncertain behavior of skin (55896706) Neoplasm of uncertain behavior of skin (238.2) Active confirmed Diag Problem Hyperlipidemia (83479005) Other and unspecified hyperlipidemia (272.4) Active confirmed Major Problem Dysmetabolic syndrome X (224422821) Dysmetabolic Syndrome X (277.7) Active confirmed Major Problem Obesity (112101789) Obesity, unspecified (278.00) Active confirmed Major Problem Depressive disorder (75563017) Depressive disorder, not elsewhere classified (311) Active confirmed Major Problem Disorder of function of stomach (252569602) Dyspepsia and other specified disorders of function of stomach (536.8) Active confirmed Diag Plan Of Treatment No Information Insurance Providers Payer Name Payer Address Payer Phone Subscriber Number Group Number Insured Name Patient Relationship to Insured Coverage Start Date Coverage End Date [facility] [address] [place] [address] [id number] DALTONVANI DUMAS Self - patient is the insured
== END 2025-04-10 15:09 | disposition home or self-care (01) ==
LOC: HO.HGS 14:27
PROVIDERS: PCP Internal Medicine; Visit Provider Surgery
DX: D23.4 Other benign neoplasm of skin of scalp and neck (principal)
CPT/HCPCS: 99204